=== PATIENT | female | born 1960 | race Caucasian/White ===

== ENCOUNTER 2019-12-18 08:44 | Outpatient (CLI) | payer OTHER, SELFPAY ==
--- NOTE | ~2019-12-18 | MM_ITS ---
EXAMINATION: MM screening brad BI w lopez HISTORY: Screening mammogram TECHNIQUE: Craniocaudal and mediolateral oblique 3-D tomosynthesis images were obtained and synthetic 2-D images were generated. CAD analysis was submitted and interpreted. COMPARISON: Comparison to multiple prior studies sequentially, with oldest reviewed study dated 01/14. BREAST PARENCHYMAL COMPOSITION: There are scattered areas of fibroglandular density. FINDINGS: Stable focal asymmetry outer aspect of the right breast with adjacent tissue marker from re cent benign biopsy. There is no evidence of suspicious mass, calcification, or architectural distorti on to suggest malignancy in either breast. There has been no suspicious interval change. IMPRESSION: 1. No mammographic evidence of malignancy. 2. Recommend routine screening mammography in one year. BI-RADS Category 2: Benign finding(s). Reviewed, dictated and finalized at location A.
--- NOTE | ~2019-12-18 | DEXA_ITS ---
Bone Density Report Name: Adelina Man Age: 59 Sex: Female Ethnicity: White Date of : 1960 Indication: postmenopausal; parental hip fracture; Referring Provider: DEB LACY Study: Bone densitometry was performed. Exam Date: December 18, 2019 Accession number: [id number] Bone Density: Region BMD T-score Z-score Classification AP Spine (L1, L3, L4) 0.967 -0.8 0.8 Normal Femoral Neck (Left) 0.813 -0.3 1.0 Normal Total Hip (Left) 0.918 -0.2 0.8 Normal Total Hip Bilateral Avg 0.929 -0.1 0.9 Normal Femoral Neck (Right) 0.802 -0.4 0.9 Normal Total Hip (Right) 0.938 0.0 1.0 Normal World Health Organization criteria for BMD impression classify patients as: Normal (T-score at or above -1.0), Osteopenia (T-score between -1.0 and -2.5), or Osteoporosis (T-score at or below -2.5). 10-year Fracture Risk: FRAX not reported because: All T-scores for Spine Total, Hip Total, Femoral Neck at or above -1.0 Previous Exams: Region Exam Age BMD T-score BMD Change BMD Change Date g/cm2 vs Baseline vs Previous AP Spine(L1, L3, L4) 12/18/2019 59 0.967 -0.8 -0.120(-11.0%) -0.072(-7.0%)* 01/12/2015 54 1.039 -0.1 -0.048(-4.4%)# -0.048(-4.4%)# 11/12/2010 50 1.087 0.3 Total Hip(Left) 12/18/2019 59 0.918 -0.2 -0.044(-4.6%)# -0.020(-2.2%) 01/12/2015 54 0.939 0.0 -0.024(-2.4%)# -0.024(-2.4%)# 11/12/2010 50 0.962 0.2 Total Hip(Right) 12/18/2019 59 0.938 0.0 0.003(0.3%)# -0.015(-1.6%) 01/12/2015 54 0.953 0.1 0.018(1.9%)# 0.018(1.9%)# 11/12/2010 50 0.935 -0.1 *Denotes significance at 95% confidence level, LSC for AP Spine = 0.022 g/cm2, LSC for Total Hip = 0.027 g/cm2 Clinical Information Provided by Patient: Parent has had a hip fracture Has used the following medications: Vitamin D Patient maximum height was 66 Menopause Age: 56 Drinks caffeinated beverages Onset of menses at age 11 Number of children 2 Impression: The patient has normal bone mass. The patient has risk factors, including: parental hip fracture. The BMD for the AP Spine(L1, L3, L4) decreased, changing by -7.0% since the last DXA exam. Discussion: BONE DENSITY IS ABOVE THE MINIMUM DESIRABLE LEVEL AT ALL SKELETAL SITES TESTED. This patient?s bone mineral density is above the minimum desirable level (T-score -1.0 or better) at all sites measured. The patient should follow a healthful lifestyle (good nutrition with adequate calcium and vitamin D, and
== END 2019-12-18 08:45 | disposition home or self-care (01) ==
LOC: ANHIMG 08:46
PROVIDERS: PCP Family Medicine; Visit Provider Obstetrics & Gynecology
DX: Z12.31 Encounter for screening mammogram for malignant neoplasm of breast (principal); Z78.0 Asymptomatic menopausal state
CPT/HCPCS: 77063; 77067; 77080

== ENCOUNTER 2020-06-06 07:40 | Outpatient (CLI) | payer OTHER, SELFPAY ==
--- NOTE | ~2020-06-06 | US_ITS ---
EXAMINATION: US pelvic complete w TV DATE: 06/06/2020 08:33 INDICATION: Postmenopausal bleeding Comparison:No prior studies for comparison. TECHNIQUE: Multiple transabdominal and endovaginal sonographic images of the pelvis performed. FINDINGS: The uterus measures 5.4 x 4.2 x 2.9 cm. There are nabothian cysts with cervical calcificati ons. There is a uterine fibroid posteriorly measuring 8 mm maximum dimension. The endometrial complex measures 5 mm. The ovaries are not visualized. There is no free fluid in the pelvis. There are no abnormal masses seen on either side. IMPRESSION: 1. Small 8 mm uterine fibroid posteriorly at the fundus. 2: Small developing cyst with cervical calcifications, nonspecific. Reviewed, dictated and finalized at location A. TYPE WORKER
== END 2020-06-06 07:41 | disposition home or self-care (01) ==
PROVIDERS: PCP Family Medicine; Visit Provider Nurse Practitioner
DX: N95.0 Postmenopausal bleeding (principal); D25.9 Leiomyoma of uterus, unspecified
CPT/HCPCS: 76830; 76856

== ENCOUNTER → 2020-07-28 00:14 | Outpatient (CLI) | payer OTHER, SELFPAY ==
[2020-07-28 19:08] LABS: SARS-CoV-2 RNA PCR Negative
== END ==
PROVIDERS: PCP Family Medicine; Visit Provider Obstetrics & Gynecology
DX: Z01.812 Encounter for preprocedural laboratory examination (principal); Z20.822 Contact with and (suspected) exposure to COVID-19
CPT/HCPCS: C9803; U0003; U0005

== ENCOUNTER 2020-07-31 00:12 | Day surgery (SDC) | payer OTHER, SELFPAY ==
[2020-07-27 15:12] VITALS: BMI 33.5
--- NOTE | 2020-07-30 13:49 | WPDANESEPPF ---
Anes - Initial Pre Proc Eval Procedure: Operation Date: 07/31/20 12:00 Proposed Procedures p Hysteroscopy Dilation and Curettage - Mukund Garcia MD Date/Time: 07/30/20 13:49 Surgeon: Mukund Garcia MD Pre Op Diagnosis: Post Menopausal Bleeding Patient Data Age: 60 Gender: F Height: 1.68 m Weight: 94.09 kg Allergies Allergy/AdvReac Type Severity Reaction Status Date / Time adhesive tape Allergy Intermediate Rash Verified 07/31/20 09:52 amoxicillin Allergy Intermediate Hives Verified 07/31/20 09:52 sulfanilamide Allergy Intermediate Abdominal Verified 07/31/20 09:52 Pain cephalexin Allergy Mild Itching Verified 07/31/20 09:52 erythromycin base Allergy Unknown Itching Verified 07/31/20 09:52 Home Medications Medication Instructions Recorded Confirmed Type montelukast 10 mg tablet 10 mg PO DAILY 12/27/19 07/31/20 History aspirin 81 mg PO DAILY 07/27/20 07/27/20 History biotin 10 mg PO DAILY 07/27/20 07/27/20 History cholecalciferol (vitamin D3) 1,000 mcg PO DAILY 07/27/20 07/31/20 History [Vitamin D3] fish,bora,flax oils-om3,6,9no1 1 cap PO DAILY 07/27/20 07/27/20 History [[place] 3-6-9] multivitamin [Multi-Daily] 1 tablet PO DAILY 07/27/20 07/27/20 History Patient hx anesthesia problems: none Family hx anesthesia problems: none PMFSH Past Medical History Medical History (Updated 07/31/20 @ 09:29 by Mukund Garcia MD) Abnormal uterine bleeding Chronic sinusitis Obesity Postmenopausal bleeding Surgical History Surgical History H/O foot surgery H/O tubal ligation Hx of right breast biopsy benign Family History Family History Other Diabetes mellitus Family history of cardiovascular disease Heart disease Hypertension Social History Social History Smoking status: Never smoker Alcohol intake: current Alcohol use details: socially once a month Living arrangements: with family Spiritual care concerns: No Anes - Eval Final PreProcedure Day of Procedure 07/30/20 13:49 Patient weight: obese Heart: regular rate and rhythm Lungs: clear to auscultation and normal air movement Airway: Mallampati scale class II Neurological: alert and oriented Last oral intake: >/= 8 hours ASA classification: II Emergent: no Anesthetic plan: proceed Anesthesia type and monitoring: general GIVS and LMA Informed Consent: The patient's anesthetic plan and its attendant risks and benefits were discussed with the patient/family/POA. Questions were solicited and answers provided to the satisfaction of the patient/family/POA.
--- NOTE | 2020-07-31 09:24 | P.HP_ITS ---
History of Present Illness History of Present Illness Consent: Risks, benefits, and alternatives have been discussed and questions answered. Patient agrees to proceed with procedure. Chief complaint: Post Menopausal Bleeding Narrative: Adelina Man is a 60 year old female A1 presented to the office with complaints of vaginal bleeding. patient reports red to light pink and lasted for a day . Ultrasound showed a 5 mm stripe and no hormone use. PMFSH Past Medical History Medical History Abnormal uterine bleeding Chronic sinusitis Obesity Surgical History Surgical History H/O foot surgery H/O tubal ligation Hx of right breast biopsy benign Family History Family History Other Diabetes mellitus Family history of cardiovascular disease Heart disease Hypertension Social History Social History Smoking status: Never smoker Alcohol intake: current Alcohol use details: socially once a month Living arrangements: with family Spiritual care concerns: No Meds Home Medications and Allergies Home Medications Medication Instructions Recorded Confirmed Type montelukast 10 mg tablet 10 mg PO DAILY 12/27/19 07/27/20 History aspirin 81 mg PO DAILY 07/27/20 07/27/20 History biotin 10 mg PO DAILY 07/27/20 07/27/20 History cholecalciferol (vitamin D3) 1,000 mcg PO DAILY 07/27/20 07/27/20 History [Vitamin D3] fish,bora,flax oils-om3,6,9no1 1 cap PO DAILY 07/27/20 07/27/20 History [[place] 3-6-9] multivitamin [Multi-Daily] 1 tablet PO DAILY 07/27/20 07/27/20 History Allergies Allergy/AdvReac Type Severity Reaction Status Date / Time adhesive tape Allergy Intermediate Rash Verified 07/27/20 14:43 amoxicillin Allergy Intermediate Hives Verified 07/27/20 14:43 sulfanilamide Allergy Intermediate Abdominal Verified 07/27/20 14:43 Pain cephalexin Allergy Mild Itching Verified 07/27/20 14:43 erythromycin base Allergy Unknown Itching Verified 07/27/20 14:43 Exam Resp: Effort & Inspection: normal respiratory effort Auscultation: clear to auscultation bilaterally GI: Inspection: normal to inspection GI Palp: Yes Soft to palpation : Speculum Exam - Vagina: normal appearance of the vagina and vagina atrophic Assessment and Plan Assessment and plan (1) Postmenopausal bleeding: Code(s): N95.0 - Postmenopausal bleeding Status: Acute Assessment and Plan: schedule for hysteroscopy with dilation and curettage
[2020-07-31] MEDS: ACETAMINOPHEN 500 MG TABLET 1000 MG PO (09:58)
[2020-07-31] MEDS: LACTATED RINGERS 1,000 ML 30 ML IV CONT (10:18)
[2020-07-31 10:19] VITALS: BP 116/59; PULSE 63; RESP 16; TEMP 36.6; O2SAT 98
--- NOTE | 2020-07-31 11:41 | WPDHPUPDATE1 ---
History and Physical Update Update Date/Time: 07/31/20 11:41 History and Physical has been reviewed, including an updated exam of the patient. There are NO changes in the patient's condition. Risks, benefits, and alternatives have been discussed and questions answered. Patient agrees to proceed with procedure.
--- NOTE | 2020-07-31 12:42 | PM.PROC ---
Procedure Note - Detailed Date of procedure: 07/31/20 Pre-op diagnosis: Post Menopausal Bleeding Post-op diagnosis: same Procedure performed: hysteroscopy dilation and curettage Description of procedure: Patient was taken to the operating room with IV running and prepped and draped in normal sterile fashion. She was placed in the lithotomy position bivalve speculum was placed into the vagina. Anterior lip of the cervix was grasped with a single-tooth tenaculum and the cervix was injected at the 2 and 10 o'clock position with lidocaine bilaterally. The cervix was serially dilated with Hegar dilators to 7 and the use uterus was sounded to 7cm. A hysteroscope was introduced and noted a atrophic cavity with bilateral ostia. The hysteroscope was removed and a sharp curettage was performed in all 4 quadrants. All instruments were removed from the patient's vagina hemostasis were assured and the patient was taken to the recovery room in stable condition Anesthesia: MAC and local Surgeon: Mukund Garcia MD Estimated blood loss (mL): 5 Drains: No Packing: No Pathology: yes Condition: stable Disposition: PACU Findings: atrophic uterine cavity
[2020-07-31 12:45] VITALS: BP 116/63; PULSE 55; RESP 20
[2020-07-31 13:15] VITALS: BP 122/60; PULSE 55; RESP 20
[2020-07-31 13:45] VITALS: BP 119/70; PULSE 49; RESP 20
== END 2020-07-31 14:00 | disposition home or self-care (01) ==
PROVIDERS: PCP Family Medicine; Visit Provider Obstetrics & Gynecology
PROC: 0U5B8ZZ Destruction of Endometrium, Via Natural or Artificial Opening Endoscopic (ICD-10-PCS; CPT 58563; principal; 2020-07-31 12:00)
DX: N95.0 Postmenopausal bleeding (principal); N85.8 Other specified noninflammatory disorders of uterus; E66.9 Obesity, unspecified; Z68.33 Body mass index [BMI] 33.0-33.9, adult
CPT/HCPCS: 58558; 88305; A9270; J1100; J2250; J2405; J2704; J3010; J7030; J7120

== ENCOUNTER 2020-07-31 17:28 | Outpatient (CLI) | payer OTHER, SELFPAY | END 2020-07-31 17:29 | disposition home or self-care (01) | LOC: ANHCOVIDVC 17:28 | PROVIDERS: PCP Family Medicine | DX: Z23 Encounter for immunization (principal) | CPT/HCPCS: 0001A; 91300 ==

== ENCOUNTER 2020-08-21 17:22 | Outpatient (CLI) | payer OTHER, SELFPAY | END 2020-08-21 17:23 | disposition home or self-care (01) | LOC: ANHCOVIDVC 17:22 | PROVIDERS: PCP Family Medicine | DX: Z23 Encounter for immunization (principal) | CPT/HCPCS: 0002A; 91300 ==

== ENCOUNTER 2020-09-08 17:57 | Emergency (ER) | payer OTHER, SELFPAY ==
[2020-09-08 18:06] VITALS: BP 144/62; PULSE 75; RESP 18; TEMP 36.9; O2SAT 99
--- NOTE | 2020-09-08 18:44 | ED.EAR ---
HPI - Ear Problem General Chief complaint: Ear Stated complaint: Ear Pain Source: patient and RN notes reviewed Limitations: no limitations History of Present Illness HPI Narrative: The patient, previously mostly healthy nonsmoker/ occ drinker, presents with ear discomfort. Patient states she noticed some blood-tinged discharge from the' first time' use of a Q-tip yesterday. This was preceded by left ear fullness 'fluid' sensation, despite use antihistamines, Navage. Symptoms are mild, somewhat worse positionally. She has been seen by ENT in the past for ear fluttering. Related Data Home Medications Medication Instructions Recorded Confirmed montelukast 1 mg PO DAILY 09/08/20 09/08/20 Allergies Allergy/AdvReac Type Severity Reaction Status Date / Time adhesive tape Allergy Intermediate Rash Verified 09/08/20 18:12 amoxicillin Allergy Intermediate Hives Verified 09/08/20 18:12 sulfanilamide Allergy Intermediate Abdominal Verified 09/08/20 18:12 Pain cephalexin Allergy Mild Itching Verified 09/08/20 18:12 erythromycin base Allergy Unknown Itching Verified 09/08/20 18:12 Review of Systems Review of Systems: Narrative: The patient has been informed that they may have pre-hypertension or Hypertension based on a BP reading in the department. I recommend that the patient call the primary care provider listed on their discharge instructions or a physician of their choice this week to arrange follow up for further evaluation of possible pre-hypertension or Hypertension General/Constitutional: No weight loss,fever Eyes: N0: Redness,discharge Ears/Nose/Throat: No: Epistaxis,ear discharge Respiratory: Denies: Hemoptysis Gastrointestinal: No Vomiting, Bleeding-rectal Skin: No Lumps, eruption Neurologic: No Focal Weakness,Sz Hematologic: Denies: Petechiae/Purpura Psychiatric: No: Suicida ideationl All Other Systems: Reviewed and Negative [facility] Past Medical History Medical History (Updated 09/09/20 @ 00:00 by Background Damaxineon) Abnormal uterine bleeding Chronic sinusitis Obesity Postmenopausal bleeding Surgical History Surgical History H/O foot surgery H/O tubal ligation Hx of right breast biopsy benign Family History Family History Other Diabetes mellitus Family history of cardiovascular disease Heart disease Hypertension Social History Social History Smoking status: Never smoker Alcohol intake: current Gender identity (if verbalized by the patient): Female Spiritual care concerns: No Comments At time of signature, agree with nursing past medical, surgical, social and family history. There is no relevant family history pertinent to the presenting complaint Exam Narrative: Exam Narrative: General Appearance: Well appearing, Conjunctiva clear Ears: External ear normal, TMs benign bilaterally, left EAC with small area of scab/clotted blood Nose: Normal nose Mouth/Throat: Normal appearing, Normal lips Neck: Supple Respiratory: Airway patent, No respiratory distress Musculoskeletal: Full ROM Skin: Warm, Dry Neurological: A&O x3, Normal affect Course Vital Signs Vital signs: Vital Signs Temperature 98.4 F 09/08/20 18:06 Pulse Rate 75 09/08/20 18:06 Respiratory Rate 18 09/08/20 18:06 Blood Pressure 144/62 H 09/08/20 18:06 Pulse Oximetry 99 09/08/20 18:06 Temperature 98.4 F 09/08/20 18:06 Pulse Rate 75 09/08/20 18:06 Respiratory Rate 18 09/08/20 18:06 Blood Pressure 144/62 H 09/08/20 18:06 Pulse Oximetry 99 09/08/20 18:06 Medical Decision Making Vital Signs Vital Signs: Vital Signs Temperature 98.4 F 09/08/20 18:06 Pulse Rate 75 09/08/20 18:06 Respiratory Rate 18 09/08/20 18:06 Blood Pressure 144/62 H 09/08/20 18:06 Pulse Oximetry 99 09/08/20 18:
== END 2020-09-08 18:51 | disposition home or self-care (01) ==
PROVIDERS: Emergency Provider Emergency Medicine; PCP Family Medicine
DX: S01.302A Unspecified open wound of left ear, initial encounter (principal); X58.XXXA Exposure to other specified factors, initial encounter
CPT/HCPCS: 99213; G0463

== ENCOUNTER 2020-09-26 22:25 | Emergency (ER) | payer OTHER, SELFPAY ==
[2020-09-26 22:35] VITALS: BP 149/78; PULSE 67; RESP 18; TEMP 36.2; O2SAT 95
--- NOTE | 2020-09-26 23:11 | ED.GENADULT ---
HPI - General Adult General Chief complaint: Skin/Abscess/Foreign Body Stated complaint: possible insect bite to the left arm Time Seen by Provider: 09/26/20 23:07 Source: RN notes reviewed History of Present Illness HPI narrative: Patient presents emergency department from home for insect bite. Patient states that approximately 1 hour ago she was in her bathroom when she felt a sting in her left medial upper arm she states that she swatted at that time and not definitively see an insect but began to have some erythema in that area followed by swelling down her arm she denies any swelling of the lips or tongue or shortness of breath she states she did apply some cortisone cream to the region she denies any other symptoms at this time Related Data Home Medications Medication Instructions Recorded Confirmed montelukast 1 mg PO DAILY 09/08/20 09/22/20 Allergies Allergy/AdvReac Type Severity Reaction Status Date / Time adhesive tape Allergy Intermediate Rash Verified 09/26/20 23:04 amoxicillin Allergy Intermediate Hives Verified 09/26/20 23:04 sulfanilamide Allergy Intermediate Abdominal Verified 09/26/20 23:04 Pain cephalexin Allergy Mild Itching Verified 09/26/20 23:04 erythromycin base Allergy Unknown Itching Verified 09/26/20 23:04 Review of Systems Review of Systems: Narrative: Gen.: Denies fevers or chills Eyes: Denies eye pain or visual change ENT: No swelling of lips or tongue Respiratory: Denies shortness of breath or cough CV: Denies chest pain or palpitations GI: Denies abdominal pain nausea, emesis Musculoskeletal: Denies back pain or muscle pain Neuro: Denies numbness, tingling, weakness Skin: See HPI Except as documented, all other systems reviewed and negative [facility] Past Medical History Medical History Abnormal uterine bleeding Chronic sinusitis Obesity Postmenopausal bleeding Surgical History Surgical History H/O foot surgery H/O tubal ligation Hx of right breast biopsy benign Family History Family History Other Diabetes mellitus Family history of cardiovascular disease Heart disease Hypertension Social History Social History (Reviewed 09/26/20 @ 23:12 by THOMAS Shin Smoking status: Never smoker Alcohol intake: current Gender identity (if verbalized by the patient): Female Spiritual care concerns: No Exam Narrative: Exam Narrative: APPEARANCE: No acute distress, nontoxic, resting in bed Eyes: EOMI HEENT: Normocephalic, atraumatic, RESPIRATORY: No respiratory distress MUSCULOSKELETAl: The left medial upper arm has a small area of erythema just proximal to the elbow with mild swelling down the inner left arm full range of motion of the elbow without pain radial pulse 2+ neurovascular intact NEURO: Awake and alert. Following commands, speech normal, no focal deficits SKIN:: Warm, dry. Normal Color no rash or lesions Course Course Emergency Course: Discussed with patient results of workup and diagnosis. Discussed need for follow-up with primary care, proper use of medication, and reasons to return to the emergency department. Patient understands and agrees to current treatment plan Vital Signs Vital signs: Vital Signs Temperature 97.1 F L 09/26/20 22:35 Pulse Rate 67 09/26/20 22:35 Respiratory Rate 18 09/26/20 22:35 Blood Pressure 149/78 H 09/26/20 22:35 Pulse Oximetry 95 09/26/20 22:35 Temperature 97.1 F L 09/26/20 22:35 Pulse Rate 67 09/26/20 22:35 Respiratory Rate 18 09/26/20 22:35 Blood Pressure 149/78 H 09/26/20 22:35 Pulse Oximetry 95 09/26/20 22:35 Medical Decision Making Vital Signs Vital Signs: Vital Signs Temperature 97.1 F L 09/26/20 22:35 Pulse Rate 67 09/26/20 22:35 Respiratory Rate 18 09/26/20 22:35 Blood Pressure 149/
[2020-09-26] MEDS: diphenhydrAMINE HCl CAP 25 MG CAPSULE PO (23:26)
[2020-09-26] MEDS: predniSONE 20 MG TABLET 60 MG PO (23:27)
== END 2020-09-26 23:41 | disposition home or self-care (01) ==
LOC: ANHED 23:17
PROVIDERS: Emergency Provider Emergency Medicine; PCP Family Medicine
DX: T63.481A Toxic effect of venom of other arthropod, accidental (unintentional), initial encounter (principal); E66.9 Obesity, unspecified; Z68.33 Body mass index [BMI] 33.0-33.9, adult
CPT/HCPCS: 99283; A9270; J7512

== ENCOUNTER → 2020-12-01 10:59 | Outpatient (CLI) | payer OTHER, SELFPAY ==
--- NOTE | ~2020-12-01 | XR_ITS ---
XR knee LT min 4V DATE: 12/01/2020 12:13 INDICATION: Fall, left knee injury TECHNIQUE: 4 views, including sunrise and standing AP, PA and lateral projections COMPARISON: 06/12/2018 FINDINGS: No fracture or dislocation or joint effusion, radiopaque intra-articular loose body or mary drocalcinosis. Joint spaces are well preserved. No periosteal reaction or bone destruction. IMPRESSION: Negative Reviewed, dictated and finalized at location A. IMPRESSION: Negative
--- NOTE | ~2020-12-01 | XR_ITS ---
XR foot LT min 3V DATE: 12/01/2020 12:13 INDICATION: Fall. Foot injury, pain TECHNIQUE: 4 views COMPARISON: None FINDINGS: There is diffuse osteopenia. There is osteoarthritic change at the first metatarsophalangeal joint. No fracture, dislocation, periosteal reaction or bone destruction is detected. IMPRESSION: Diffuse osteopenia Osteoarthritis at first metatarsophalangeal joint Reviewed, dictated and finalized at location A.
--- NOTE | ~2020-12-01 | XR_ITS ---
XR ankle LT min 3V DATE: 12/01/2020 12:13 INDICATION: Fall. Left ankle injury, pain TECHNIQUE: 4 views COMPARISON: None FINDINGS: No fracture or dislocation of the ankle or disruption of the ankle mortise. No periosteal r eaction or bone destruction. IMPRESSION: No significant abnormality Reviewed, dictated and finalized at location A. IMPRESSION: No significant abnormality
--- NOTE | ~2020-12-01 | XR_ITS ---
XR elbow LT min 3V DATE: 12/01/2020 12:13 INDICATION: Fall. Left elbow injury, pain TECHNIQUE: 4 views COMPARISON: None FINDINGS: No fracture, dislocation, periosteal reaction or bone destruction or joint effusion. IMPRESSION: Negative Reviewed, dictated and finalized at location A. IMPRESSION: Negative
== END ==
PROVIDERS: PCP Family Medicine; Visit Provider Physician Assistant
DX: M25.562 Pain in left knee (principal); M25.522 Pain in left elbow; W10.2XXA Fall (on)(from) incline, initial encounter
CPT/HCPCS: 73080; 73564; 73610; 73630

== ENCOUNTER 2021-01-30 09:11 | Outpatient (CLI) | payer OTHER, SELFPAY ==
--- NOTE | ~2021-01-30 | MM_ITS ---
EXAMINATION: MM screening brad BI w lopez HISTORY: Screening mammogram TECHNIQUE: Craniocaudal and mediolateral oblique 3-D tomosynthesis images were obtained and synthetic 2-D images were generated. CAD analysis was submitted and interpreted. COMPARISON: 12/18/2019 bilateral digital screening mammogram 08/10/2018 diagnostic right mammogram and limited right breast ultrasound 02/12/2018 diagnostic right mammogram and limited right breast ultrasound 02/07/2018 bilateral digital screening mammogram BREAST PARENCHYMAL COMPOSITION: There are scattered areas of fibroglandular density. FINDINGS: There is a biopsy marker in the upper outer right breast; history of prior benign right loulou ast biopsy. There is no evidence of suspicious mass, calcification, or architectural distortion to s uggest malignancy in either breast. There has been no suspicious interval change. IMPRESSION: 1. No mammographic evidence of malignancy. 2. Recommend routine screening mammography in one year. BI-RADS Category 2: Benign finding(s). Reviewed, dictated and finalized at location A.
== END 2021-01-30 09:12 | disposition home or self-care (01) ==
LOC: ANHIMG 09:13
PROVIDERS: PCP Family Medicine; Visit Provider Obstetrics & Gynecology
DX: Z12.31 Encounter for screening mammogram for malignant neoplasm of breast (principal)
CPT/HCPCS: 77063; 77067

== ENCOUNTER 2021-03-19 02:50 | Day surgery (SDC) | payer OTHER, SELFPAY ==
[2021-03-01 15:07] VITALS: BMI 34.2
[2021-03-19 09:35] VITALS: BP 138/67; PULSE 67; RESP 18; TEMP 36.4; O2SAT 100
[2021-03-19] MEDS: LACTATED RINGERS 1,000 ML 150 ML IV CONT (09:46)
--- NOTE | 2021-03-19 09:51 | WPDGICN ---
Assessment and Plan Assessment and plan (1) History of colon polyps: Code(s): Z86.010 - Personal history of colonic polyps Status: Acute Assessment and Plan: Patient has a history of colon polyps by previous colonoscopy in 2011. Plan is for surveillance colonoscopy at this time. Further recommendations will be given after endoscopy. GI Consult Note Consult date/time: 03/19/21 09:51 HPI: Adelina Man is a 61 year old female Presents for screening colonoscopy. Patient reports a prior history of colon polyps in 2011. Patient reports that her current weight appetite and bowel movements are normal. She denies abdominal pain. She has had no bleeding. Family history is noncontributory. She presents today for follow-up neoplasia screening colonoscopy. Review of Systems Review of Systems: All systems reviewed & are unremarkable except as noted in HPI and below PMFSH Past Medical History Medical History Abnormal uterine bleeding Chronic sinusitis Obesity Postmenopausal bleeding Surgical History Surgical History H/O foot surgery H/O tubal ligation Hx of right breast biopsy benign Family History Family History Other Diabetes mellitus Family history of cardiovascular disease Heart disease Hypertension Social History Social History Smoking status: Never smoker Alcohol intake: current Alcohol use details: socially once a month Substance use: never Substance use type: does not use Living arrangements: with family Additional living arrangements comments: lives with spouse Gender identity (if verbalized by the patient): Female Spiritual care concerns: No Meds Home Medications and Allergies Home Medications Medication Instructions Recorded Confirmed Type loratadine 10 mg PO DAILY #3 tablet 09/26/20 03/19/21 Rx aspirin 81 mg tablet,delayed 81 mg PO DAILY 11/04/20 03/19/21 History release cetirizine 10 mg tablet 10 mg PO DAILY PRN 11/04/20 03/19/21 History fluticasone propionate 50 2 spray INTRANASAL BID #16 ml 11/04/20 03/19/21 Rx mcg/actuation nasal spray,suspension montelukast 10 mg tablet 10 mg PO QHS #90 tablet 11/23/20 03/19/21 Rx ggavkpecvitz-pyr-qkol-FA-vit K 1 tablet PO DAILY 03/01/21 03/19/21 History [Adults Multivitamin] Allergies Allergy/AdvReac Type Severity Reaction Status Date / Time adhesive tape Allergy Intermediate Rash Verified 03/19/21 09:34 amoxicillin Allergy Intermediate Hives Verified 03/19/21 09:34 sulfanilamide Allergy Intermediate Abdominal Verified 03/19/21 09:34 Pain cephalexin Allergy Mild Itching Verified 03/19/21 09:34 erythromycin base Allergy Unknown Itching Verified 03/19/21 09:34 Vital Signs Vital Signs - 24 hr 03/19/21 09:35 Temperature 97.5 F L Pulse Rate 67 Respiratory Rate 18 Blood Pressure 138/67 Pulse Oximetry 100 Exam Narrative: Physical exam reveals patient to be alert. Vital signs stable. HEENT exam is unremarkable. Patient is anicteric. Lungs are clear to auscultation and percussion. Heart is without murmur or extra sounds. Abdominal exam bowel sounds are present soft nontender with no organomegaly. Digital external rectal exam is normal.
--- NOTE | 2021-03-19 10:06 | WPDANESEPPF ---
Anes - Initial Pre Proc Eval Procedure: Operation Date: 03/19/21 10:00 Proposed Procedures p Screening Colonoscopy - Robert Sue MD Date/Time: 03/19/21 10:06 Surgeon: Robert Sue MD Pre Op Diagnosis: hx of colon polyps, neoplasm screening Patient Data Age: 61 Gender: F Height: 1.68 m Weight: 94.7 kg Last Vital Signs Temp 97.5 F L 03/19/21 09:35 Pulse 67 03/19/21 09:35 Resp 18 03/19/21 09:35 BP 138/67 03/19/21 09:35 Pulse Ox 100 03/19/21 09:35 Allergies Allergy/AdvReac Type Severity Reaction Status Date / Time adhesive tape Allergy Intermediate Rash Verified 03/19/21 09:34 amoxicillin Allergy Intermediate Hives Verified 03/19/21 09:34 sulfanilamide Allergy Intermediate Abdominal Verified 03/19/21 09:34 Pain cephalexin Allergy Mild Itching Verified 03/19/21 09:34 erythromycin base Allergy Unknown Itching Verified 03/19/21 09:34 Home Medications Medication Instructions Recorded Confirmed Type loratadine 10 mg PO DAILY #3 tablet 09/26/20 03/19/21 Rx aspirin 81 mg tablet,delayed 81 mg PO DAILY 11/04/20 03/19/21 History release cetirizine 10 mg tablet 10 mg PO DAILY PRN 11/04/20 03/19/21 History fluticasone propionate 50 2 spray INTRANASAL BID #16 ml 11/04/20 03/19/21 Rx mcg/actuation nasal spray,suspension montelukast 10 mg tablet 10 mg PO QHS #90 tablet 11/23/20 03/19/21 Rx ippxrcpylncc-ymn-onhs-FA-vit K 1 tablet PO DAILY 03/01/21 03/19/21 History [Adults Multivitamin] Patient hx anesthesia problems: none Family hx anesthesia problems: none Results Review: All pre-operative results and documents have been reviewed as part of the pre-operative evaluation. [facility] Past Medical History Medical History Abnormal uterine bleeding Chronic sinusitis Obesity Postmenopausal bleeding Surgical History Surgical History H/O foot surgery H/O tubal ligation Hx of right breast biopsy benign Family History Family History Other Diabetes mellitus Family history of cardiovascular disease Heart disease Hypertension Social History Social History Smoking status: Never smoker Alcohol intake: current Alcohol use details: socially once a month Substance use: never Substance use type: does not use Living arrangements: with family Additional living arrangements comments: lives with spouse Gender identity (if verbalized by the patient): Female Spiritual care concerns: No Anes - Eval Final PreProcedure Day of Procedure 03/19/21 10:07 Patient weight: obese Heart: regular rate and rhythm Lungs: clear to auscultation Airway: Mallampati scale class II Neurological: alert and oriented Last oral intake: >/= 8 hours ASA classification: II Emergent: no Anesthetic plan: proceed Anesthesia type and monitoring: general GIVS and standard monitoring Results Review: All pre-operative results and documents have been reviewed as part of the pre-operative evaluation. Informed Consent: The patient's anesthetic plan and its attendant risks and benefits were discussed with the patient/family/POA. Questions were solicited and answers provided to the satisfaction of the patient/family/POA.
[2021-03-19 10:37] VITALS: BP 100/60; PULSE 65; RESP 25; O2SAT 96
[2021-03-19 10:47] VITALS: BP 119/72; PULSE 61; RESP 20; O2SAT 97
[2021-03-19 10:57] VITALS: BP 127/78; PULSE 58; RESP 20; O2SAT 97
== END 2021-03-19 11:11 | disposition home or self-care (01) ==
PROVIDERS: PCP Family Medicine; Visit Provider Internal Medicine Gastroenterology
PROC: 0DJD8ZZ Inspection of Lower Intestinal Tract, Via Natural or Artificial Opening Endoscopic (ICD-10-PCS; CPT 45378; principal; 2021-03-19 10:00)
DX: Z12.11 Encounter for screening for malignant neoplasm of colon (principal); Z86.010 Personal history of colon polyps; K64.8 Other hemorrhoids; Z79.82 Long term (current) use of aspirin; E66.9 Obesity, unspecified; Z68.33 Body mass index [BMI] 33.0-33.9, adult
CPT/HCPCS: 45378; J2704; J7120

== ENCOUNTER 2021-04-02 08:04 | Outpatient (CLI) | payer OTHER, SELFPAY ==
--- NOTE | ~2021-04-02 | CT_ITS ---
EXAMINATION: CT sinus wo con DATE: 04/02/2021 08:36 INDICATION: Facial pain and pressure TECHNIQUE: Computed tomography (CT) of the paranasal sinuses was performed without intravenous contra st. The dose-length product (DLP) was 279.81 mGy-cm. Iterative reconstruction was used. COMPARISON: 07/16/2015 FINDINGS: There is normal development and pneumatization of the paranasal sinuses. There is chronic c omplete opacification of the left maxillary sinus with sclerosis of the maxillary sinus cooley. The fr ontal, sphenoid, and right maxillary sinuses are clear. There is mild mucosal thickening of the ethmo idal air cells. There are shailesh bullosa of the middle turbinates. The right ostiomeatal complex is p atent. There is partial occlusion of the left ostiomeatal complex. Visualized soft tissues are unrema rkable. There is unchanged rightward deviation of the nasal septum. IMPRESSION: 1. Chronic left maxillary sinusitis with chronically occluded left ostiomeatal complex. Reviewed, dictated and finalized at location B.
== END 2021-04-02 08:05 | disposition home or self-care (01) ==
PROVIDERS: PCP Family Medicine; Visit Provider Otolaryngology
DX: R44.8 Other symptoms and signs involving general sensations and perceptions (principal); J34.3 Hypertrophy of nasal turbinates; Z87.898 Personal history of other specified conditions; J34.2 Deviated nasal septum; R09.82 Postnasal drip; R51.9 Headache, unspecified; J32.9 Chronic sinusitis, unspecified; J34.89 Other specified disorders of nose and nasal sinuses; R09.81 Nasal congestion
CPT/HCPCS: 70486

== ENCOUNTER 2021-05-07 03:08 | Day surgery (SDC) | payer OTHER, SELFPAY ==
[2021-04-29 11:58] VITALS: BMI 34.0
--- NOTE | 2021-04-29 12:07 | PC.NURSE ---
Report to the Outpatient Waiting Room, entrance under the green pavilion located off [facility], at time 1215 on date 05/07/21. OR Time: 1415. - You and your visitor will be asked a series of questions to screen for COVID 19 for your protection. - A mask is required within the hospital. - Only one visitor is allowed at this time. Patient visitors will be guided where to wait when not with patient. Preoperative COVID Testing Requirements: No COVID Test needed if: (proof is required; if not received patient will have Rapid Test prior to entry) - Patient has received COVID Vaccine at least 14 days prior to procedure date or - Patient has positive COVID test result within last 90 days of surgery date. COVID Test needed if above criteria is not met If not COVID vaccinated a COVID test must be conducted within 72 hours of surgery and patient is asked to isolate self from time of testing until procedure. You will go to the [facility] for your COVID testing. The [facility] is located at the corner of [address] [facility]. You will only be called if COVID results are positive and your surgeon may reschedule your elective surgery date. Patients may have clear liquids (water, carbonated beverages, clear teas, apple juice) until 3 hours prior to surgery with a maximum of 20 ounces. - No food from midnight until time of surgery - Infants may have breast milk until 4 hours before surgery, infant formula 6 hours prior to surgery. - Children will be allowed to drink immediately following surgery. If applicable, please bring a bottle or sippy cup to assist with drinking. Juice, water, soda, and popsicles are readily available. For infants on formula, please bring formula the day of surgery. Pacifiers are allowed. Take the following medications with a SIP of water the morning of surgery: NASAL SPRAY (IF NEEDED) Medications to discontinue per physician: VITAMINS/SUPPLEMENTS Date to take last dose: 05/03/[address] OSORIO Please no make-up, nail libyan, hairspray, perfume, deodorant, or body powder the day of surgery. No jewelry (including any body piercings) or valuables the day of surgery, leave them at home. Please take a shower or bath the night before, or the morning of, surgery with an antibacterial soap. Wear comfortable, loose fitting clothing. Children are encouraged to wear pajamas. - Jewelry must be removed prior to entering the operating room. Rings and piercings that are not removed may be cut off. - The hospital will not accept responsibility for valuables. - Please leave all valuables, including medications, at home the day of surgery. If you are going home after surgery, a licensed tow bar driver must drive you home. - NO public transportation without another adult. - We recommend that an adult stay with you for 24 hours following discharge. - We also recommend that you do not drive, make important decision, drink alcoholic beverages, or take any drugs that were not prescribed by your health care provider for at least 24 hours after your discharge time. For Pediatric surgeries, we recommend two adults accompany the child home (only one inside the building at this time). Follow any additional instructions given to you from your surgeon. Telephone instructions given to STEPHAN CORTÉS and asked if any additional questions and then verbalized understanding. Patient advised to call surgeon office or pre surgery nurse liaison [phone] if any additional questions.
--- NOTE | 2021-05-06 09:23 | PM.IMHP ---
H&P: HPI History of Present Illness Date/Time: 05/06/21 09:23 Chief Complaint: nasal obstruction nasal congestion septal deviation turbinate hypertrophy bilateral shailesh bullosa chronic sinusitis facial pressure facial pain left maxillary sinusitis Narrative: patient presents for planned surgical procedure no change in symptoms no change in history. Review of Systems Constitutional: Constitutional: Denies fatigue, Denies fever(s) and Denies lethargy Eyes: Eyes: Denies blurry vision and Denies change in vision ENT: Reports as per HPI Cardiovascular: Cardiovascular: Denies chest pain Respiratory: Respiratory: Denies cough Endocrine: Endocrine: Denies fatigue Hematologic/Lymphatic: Hematologic/Lymphatic: Denies easy bleeding, Denies easy bruising and Denies lymphadenopathy Allergic/Immunologic: Allergic/Immunologic: Denies seasonal rhinorrhea [facility] Past Medical History Medical History Abnormal uterine bleeding Chronic sinusitis Obesity Postmenopausal bleeding Surgical History Surgical History H/O foot surgery H/O tubal ligation Hx of right breast biopsy benign Family History Family History Other Diabetes mellitus Family history of cardiovascular disease Heart disease Hypertension Social History Social History Smoking status: Never smoker Alcohol intake: current Alcohol use details: A COUPLE A MONTH Substance use: never Substance use type: does not use Living arrangements: with family Additional living arrangements comments: lives with spouse Gender identity (if verbalized by the patient): Female Spiritual care concerns: No Meds Home Medications and Allergies Home Medications Medication Instructions Recorded Confirmed Type loratadine 10 mg PO DAILY #3 tablet 09/26/20 04/29/21 Rx aspirin 81 mg tablet,delayed 81 mg PO DAILY 11/04/20 04/29/21 History release cetirizine 10 mg tablet 10 mg PO DAILY PRN 11/04/20 04/29/21 History fluticasone propionate 50 2 spray INTRANASAL BID #16 ml 11/04/20 04/29/21 Rx mcg/actuation nasal spray,suspension montelukast 10 mg tablet 10 mg PO QHS #90 tablet 11/23/20 04/29/21 Rx pufhzyimyjsx-hip-hjyn-FA-vit K 1 tablet PO DAILY 03/01/21 04/29/21 History [Adults Multivitamin] cholecalciferol (vitamin D3) 50 mcg PO DAILY 04/29/21 04/29/21 History [Vitamin D3] omega-3 fatty acids [Fish Oil] 500 mg PO DAILY 04/29/21 04/29/21 History Allergies Allergy/AdvReac Type Severity Reaction Status Date / Time adhesive tape Allergy Intermediate Rash Verified 04/29/21 11:55 amoxicillin Allergy Intermediate Hives Verified 04/29/21 11:55 sulfanilamide Allergy Intermediate Abdominal Verified 04/29/21 11:55 Pain cephalexin Allergy Mild Itching Verified 04/29/21 11:55 erythromycin base Allergy Unknown Itching Verified 04/29/21 11:55 Exam Const: General: cooperative, healthy appearing, comfortable, well developed and alert HENMT: Head: normal to inspection, normocephalic and atraumatic Ears: hearing grossly normal bilaterally, external ears normal, TM's normal bilaterally and EAC's normal General nose exam: Normal external nose present, Normal nares present, No nasal polyps present, mucous membranes and turbinates abnormal, abnormal septum and Other nasal findings present ( Septal deviation turbinate hypertrophy) Face and sinus: normal facial exam Mouth: Yes Normal oral and palatal mucosa present, Yes lip normal, Yes tongue normal, Yes oropharynx normal and Yes moist mucous membranes Teeth and gingiva: dentition normal and gingiva normal Throat: posterior oropharynx normal, tonsils normal and uvula midline Eyes: General: appearance normal, both eyes and all related structures Periorbital: periorbital fi
[2021-05-07] VITALS (8 sets, daily range): BP systolic 126–142; BP diastolic 69–82; PULSE 63–84; RESP 13–20; TEMP 36.6–37.2; O2SAT 96–100
--- NOTE | 2021-05-07 07:04 | WPDHPUPDATE1 ---
History and Physical Update Update Date/Time: 05/07/21 07:04 History and Physical has been reviewed, including an updated exam of the patient. There are NO changes in the patient's condition. Risks, benefits, and alternatives have been discussed and questions answered. Patient agrees to proceed with procedure.
[2021-05-07] MEDS: LACTATED RINGERS 1,000 ML 30 ML IV CONT ×2 (13:00→16:55)
[2021-05-07] MEDS: ACETAMINOPHEN 500 MG TABLET 1000 MG PO (13:00)
--- NOTE | 2021-05-07 14:17 | WPDANESEPPF ---
Anes - Initial Pre Proc Eval Procedure: Operation Date: 05/07/21 14:30 Proposed Procedures p Left Maxillary Antrostomy with Tissue Removal, Bilateral Inferior Turbinectomy without Fracture, Resection of Bilateral Lachelle Bullosa - Cong Corona MD s Endoscopic Septoplasty - Cong Corona MD Date/Time: 05/07/21 14:17 Surgeon: Cong Corona MD Pre Op Diagnosis: Chronic Sinusitis Patient Data Age: 61 Gender: F Height: 1.68 m Weight: 93.7 kg Last Vital Signs Temp 37.2 C 05/07/21 12:45 Pulse 68 05/07/21 12:45 Resp 20 05/07/21 12:45 BP 142/73 H 05/07/21 12:45 Pulse Ox 100 05/07/21 12:45 Allergies Allergy/AdvReac Type Severity Reaction Status Date / Time adhesive tape Allergy Intermediate Rash Verified 05/07/21 13:07 amoxicillin Allergy Intermediate Hives Verified 05/07/21 13:07 sulfanilamide Allergy Intermediate Abdominal Verified 05/07/21 13:07 Pain cephalexin Allergy Mild Itching Verified 05/07/21 13:07 erythromycin base Allergy Unknown Itching Verified 05/07/21 13:07 Home Medications Medication Instructions Recorded Confirmed Type loratadine 10 mg PO DAILY #3 tablet 09/26/20 05/07/21 Rx aspirin 81 mg tablet,delayed 81 mg PO DAILY 11/04/20 05/07/21 History release cetirizine 10 mg tablet 10 mg PO DAILY PRN 11/04/20 05/07/21 History fluticasone propionate 50 2 spray INTRANASAL BID #16 ml 11/04/20 05/07/21 Rx mcg/actuation nasal spray,suspension montelukast 10 mg tablet 10 mg PO QHS #90 tablet 11/23/20 05/07/21 Rx biqlqswrfrwi-ccu-phyt-FA-vit K 1 tablet PO DAILY 03/01/21 05/07/21 History [Adults Multivitamin] cholecalciferol (vitamin D3) 50 mcg PO DAILY 04/29/21 05/07/21 History [Vitamin D3] omega-3 fatty acids [Fish Oil] 500 mg PO DAILY 04/29/21 05/07/21 History Patient hx anesthesia problems: none Family hx anesthesia problems: none Results Review: All pre-operative results and documents have been reviewed as part of the pre-operative evaluation. [facility] Past Medical History Medical History Abnormal uterine bleeding Chronic sinusitis Obesity Postmenopausal bleeding Surgical History Surgical History H/O foot surgery H/O tubal ligation Hx of right breast biopsy benign Family History Family History Other Diabetes mellitus Family history of cardiovascular disease Heart disease Hypertension Social History Social History Smoking status: Never smoker Alcohol intake: current Alcohol use details: A COUPLE A MONTH Substance use: never Substance use type: does not use Living arrangements: with family Additional living arrangements comments: lives with spouse Gender identity (if verbalized by the patient): Female Spiritual care concerns: No Anes - Eval Final PreProcedure Day of Procedure 05/07/21 14:17 Patient weight: obese Heart: regular rate and rhythm Lungs: clear to auscultation Airway: Mallampati scale class II Neurological: alert and oriented Last oral intake: >/= 8 hours ASA classification: II Emergent: no Anesthetic plan: proceed Anesthesia type and monitoring: general ETT and standard monitoring Results Review: All pre-operative results and documents have been reviewed as part of the pre-operative evaluation. Informed Consent: The patient's anesthetic plan and its attendant risks and benefits were discussed with the patient/family/POA. Questions were solicited and answers provided to the satisfaction of the patient/family/POA.
[2021-05-07] MEDS: CLINDAMYCIN 900 MG/D5W 50 ML 900 MG/50 ML PIGGYBACK 50 MG IVPB (15:26)
[2021-05-07] MEDS: OXYMETAZOLINE HCL 0.05% NAS 15 ML BTL (*BKC) 1 SPRAY NASAL (15:52)
[2021-05-07] MEDS: LIDO 1%/EPINEPHRINE 1:100,000 50 ML VIAL INFILTRATE (16:38)
--- NOTE | 2021-05-07 17:37 | P.OP_ITS ---
Procedure Note - Detailed Date of Procedure 05/07/21 Pre-op Diagnosis Chronic Sinusitis, septal deviation, inferior turbinate hypertrophy, bilateral shailesh bullosa, nasal obstruction, nasal congestion, allergic fungal sinusitis Post-op Diagnosis same Procedure Performed 1. Endoscopic septoplasty 2. Inferior turbinate submucosal resection with outfracture 3. Bilateral resection shailesh bullosa 4. Left maxillary antrostomy endoscopic with tissue removal Surgeon Cong Corona MD Anesthesia general Indications See above Findings The knee deviated septum straightened inferior turbinate hypertrophy well reduced bilateral shailesh resected copious amounts of fungal debris allergic in the left maxillary sinus removed in totality edematous mucosa Description of Procedure Patient correctly identified consent verified in preop. Patient brought operating room. Time-out performed. General anesthesia induced endotracheal tube secured taped the left lower lip. Preoperative imaging reviewed again. Patient prepped and draped for the aforementioned procedure. Second time-out performed. Afrin-soaked pledgets placed in bilateral nasal passages allowed to sit for 5 minutes then removed. 0 degree endoscope utilized 10 cc of 1% lidocaine with 1 100,000 parts epinephrine injected in the bilateral nasal septum head the anterior inferior turbinates bilaterally and bilateral middle turbinates shailesh bullosa. [place] incision made on the left 15 blade left- sided mucoperichondrial flap elevated with 7 Mongolian suction septum transected with caudal L with some osteotome. Left right-sided mucoperichondrial flap elev ated deviated septum removed combination of scissors Yuriy forceps Teddy Fu forceps and osteotome. No perforations noted. Bilateral shailesh cut inferiorly with a sickle blade lateral portions removed straight through cut micro debrider with tri cut blade 4 mm. This was performed bilaterally. Left maxillary sinus entered posterior to the uncinate with a double ball tip probe backbiter utilized to perform uncinectomy and widen the maxillary antrostomy straight through cut utilized to completed as well as microdebrider copious amounts of infectious debris allergic fungal debris noted. These were all suctioned out with a curved suction and irrigated multiple times to ensure all of it was removed. 70 degree scope utilized to ensure its completeness. Inferior turbinates entered anteriorly with 2 mm turbinate blade debrided submucosally outfractured with [place] elevator mulberry tips cauterized with Bovie suction electrocautery at a setting of 10. This performed bilaterally Farzad incision closed with 3 interrupted 5 0 fast gut sutures. Vicente splints placed insuring they were lateral to the middle turbinates. Vicente splints sutured anteriorly with 3-0 mattressed nylon suture. Prior to the Vicente splints being placed the bilateral nasal passages were suctioned of the choana hemostasis was excellent. While hemostasis was adequate. I performed all dictated portions the procedure total blood loss approximately 25cc. Care the patient was turned over to Anesthesiology. Implants Vicente splints Estimated Blood Loss 25 Drains No Packing No Pathology none sent Complications No immediate complications Condition stable Disposition PACU
== END 2021-05-07 18:46 | disposition home or self-care (01) ==
PROVIDERS: PCP Family Medicine; Visit Provider Otolaryngology
PROC: (CPT 31267; principal; 2021-05-07 14:30)
PROC: (CPT 30520; 2021-05-07 14:30)
DX: J32.9 Chronic sinusitis, unspecified (principal); J34.2 Deviated nasal septum; J34.3 Hypertrophy of nasal turbinates; J34.89 Other specified disorders of nose and nasal sinuses; R09.81 Nasal congestion; Z79.82 Long term (current) use of aspirin; E66.9 Obesity, unspecified; Z68.33 Body mass index [BMI] 33.0-33.9, adult
CPT/HCPCS: 31267; 31240; 30520; 30140; A9270; J1100; J2250; J2405; J2704; J3010; J7120

== ENCOUNTER → 2021-08-13 07:02 | Outpatient (CLI) | payer OTHER, SELFPAY ==
--- NOTE | ~2021-08-13 | XR_ITS ---
XR ankle LT min 3V 08/13/2021 07:20 Indication: Left ankle pain Procedure: 4 views left ankle Comparison: 12/01/2020 Findings: No fracture, subluxation or dislocation. There is an osteochondral defect along the medial aspect of the talus. Ankle mortise intact. No focal soft tissue abnormality. Impression: 1: No acute fracture. 2: Osteochondral defect medial margin of the talar dome. Reviewed, dictated and finalized at location B. Impression: 1: No acute fracture. 2: Osteochondral defect medial margin of the talar dome.
== END ==
PROVIDERS: PCP Family Medicine; Visit Provider Chiropractor
DX: M79.89 Other specified soft tissue disorders (principal)
CPT/HCPCS: 73610

== ENCOUNTER → 2021-11-25 07:03 | Outpatient (CLI) | payer OTHER, SELFPAY ==
--- NOTE | ~2021-11-25 | MR_ITS ---
EXAMINATION: MR ankle LT wo con DATE: 11/25/2021 07:43 INDICATION: Lateral sided left ankle pain and swelling. Ankle instability. TECHNIQUE: Magnetic resonance imaging (MRI) of the left ankle was performed without intravenous contr ast. Sequences included sagittal, coronal, and axial proton-density weighted fast spin echo without a nd with fat saturation. COMPARISON: None. FINDINGS: Medial ankle ligaments: Deep and superficial deltoid ligaments as well as the spring ligament are normal. Lateral ankle ligaments: The anterior and posterior inferior tibiofibular ligaments are normal. The anterior talofibular, calc aneofibular and posterior talofibular ligaments are normal. Tendons: Achilles tendon is normal. The peroneus longus and brevis tendons are normal. The tibialis anterior a nd extensor hallucis longus and extensor digitorum longus tendons are normal. The tibialis posterior, flexor digitorum longus and flexor hallucis longus tendons are normal. Plantar fascia: Plantar aponeurosis is normal. Bones/other: Bone alignment is normal. No fracture or pathologic marrow replacing process. Mild tibiotalar osteoar thritis with region of high-grade chondromalacia with fissuring and underlying subarticular cystic ch anges underlying the posterior medial aspect of the talar dome. Mild talonavicular osteoarthritis wit h additional tiny subarticular cyst at the ulnar side of the head of the talus. Additional mild osteo arthritis at a few of the tarsal metatarsal joints. Lisfranc ligament complex is normal. Sinus Tarsi and tarsal tunnel are unremarkable. Fluid: 304 mm ganglion cysts at the ulnar side of the talonavicular joint. Physiologic amount fluid in the j oint spaces. Mild subarticular edema overlying the medial and lateral malleoli. IMPRESSION: 1. 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 Reviewed, dictated and finalized at location A. IMPRESSION: 1. 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
== END ==
PROVIDERS: PCP Family Medicine; Visit Provider Orthopaedic Surgery
DX: M25.372 Other instability, left ankle (principal); M17.12 Unilateral primary osteoarthritis, left knee
CPT/HCPCS: 73721

== ENCOUNTER 2022-03-25 07:21 | Outpatient (CLI) | payer OTHER, SELFPAY ==
--- NOTE | ~2022-03-25 | MM_ITS ---
EXAMINATION: MM screening [facility] BI w lopez HISTORY: Screening mammogram TECHNIQUE: Craniocaudal and mediolateral oblique 3-D tomosynthesis images were obtained and synthetic 2-D images were generated. CAD analysis was submitted and interpreted. COMPARISON: 01/30/2021, 12/18/2019, 08/10/2018, 02/12/2018, 02/07/2018 BREAST PARENCHYMAL COMPOSITION: There are scattered areas of fibroglandular density. FINDINGS: No suspicious mass, calcification, or architectural distortion are identified in either loulou ast to suggest malignancy. There has been no suspicious interval change. IMPRESSION: 1. No mammographic evidence of malignancy. 2. Recommend routine screening mammography in one year. BI-RADS Category 1: Negative Reviewed, dictated and finalized at location A.
== END 2022-03-25 07:22 | disposition home or self-care (01) ==
PROVIDERS: PCP Family Medicine; Visit Provider Nurse Practitioner
DX: Z12.31 Encounter for screening mammogram for malignant neoplasm of breast (principal)
CPT/HCPCS: 77063; 77067

== ENCOUNTER 2023-07-17 07:15 | Outpatient (CLI) | payer OTHER, SELFPAY ==
--- NOTE | ~2023-07-17 | MM_ITS ---
EXAMINATION: MM screening [facility] BI w lopez HISTORY: Screening TECHNIQUE: Craniocaudal and mediolateral oblique 3-D tomosynthesis images were obtained and synthetic 2-D images were generated. CAD analysis was submitted and interpreted. COMPARISON: Comparison to multiple prior studies sequentially, with oldest reviewed study dated 02/07. BREAST PARENCHYMAL COMPOSITION: Not dense: There are scattered areas of fibroglandular density. FINDINGS: Stable asymmetry upper aspect of the right breast on MLO view. There is a nearby tissue bio psy marker. There is no evidence of suspicious mass, calcification, or architectural distortion to altamirano ggest malignancy in either breast. There has been no suspicious interval change. IMPRESSION: 1. No mammographic evidence of malignancy. 2. Recommend routine screening mammography in one year. BI-RADS Category 1: Negative Reviewed, dictated and finalized at location A. [employer]
== END 2023-07-17 07:16 | disposition home or self-care (01) ==
LOC: ANHIMG 07:20
PROVIDERS: PCP Family Medicine; Visit Provider Nurse Practitioner
DX: Z12.31 Encounter for screening mammogram for malignant neoplasm of breast (principal)
CPT/HCPCS: 77063; 77067

== ENCOUNTER 2023-09-23 09:48 | Emergency (ER) | payer OTHER, SELFPAY ==
--- NOTE | ~2023-09-23 | XR_ITS ---
XR chest 2V DATE: 09/23/2023 10:17 INDICATION: Cough, fever, shortness of breath TECHNIQUE: PA and lateral views COMPARISON: 06/09/2014 two-view chest FINDINGS: Normal heart size. No hilar or mediastinal enlargement. No pulmonary infiltrate or consolid ation, pleural effusion or pulmonary vascular congestion or pneumothorax is detected. There is mild dextroscoliosis as well as degenerative spurring of the thoracic spine. Osteopenia. IMPRESSION: No active cardiopulmonary disease Reviewed, dictated and finalized at location A.
[2023-09-23 09:58] VITALS: BP 117/52; PULSE 69; RESP 16; TEMP 37; O2SAT 97
--- NOTE | 2023-09-23 10:11 | ED.URI ---
HPI - URI/Sore Throat General Chief Complaint: Upper Respiratory Infection Stated Complaint: Sinus Time Seen by Provider: 09/23/23 10:05 Source: patient and RN notes reviewed History of Present Illness HPI Narrative: Patient presents today complaining of a one-week history of sore throat, congestion, sinus pressure, cough, postnasal drip, fatigue. States cough has been worsening to include shortness of breath with exertion. She started running a fever of 100.8 last night. She has tried Tylenol, Mucinex, Flonase with mild relief. No history of asthma or COPD. History of chronic sinusitis with sinus surgery last year. Related Data Home Medications Medication Instructions Recorded Confirmed aspirin 81 mg tablet,delayed 81 mg PO DAILY 11/04/20 09/23/23 release (Adult Low Dose Aspirin) cetirizine 10 mg tablet (Zyrtec) 10 mg PO DAILY PRN Sinus Symptoms 11/04/20 09/23/23 multivit with minerals-iron 18 1 tablet PO DAILY 03/01/21 09/23/23 mg-folic ac 400 mcg-vit K 25 mcg tablet (Adults Multivitamin) cholecalciferol (vitamin D3) 50 50 mcg PO DAILY 04/29/21 09/23/23 mcg (2,000 unit) tablet (Vitamin D3) omega-3 fatty acids 500 mg capsule 500 mg PO DAILY 04/29/21 09/23/23 Allergies Allergy/AdvReac Type Severity Reaction Status Date / Time adhesive tape Allergy Intermediate Rash Verified 09/23/23 09:51 amoxicillin Allergy Intermediate Hives Verified 09/23/23 09:51 sulfanilamide Allergy Intermediate Abdominal Verified 09/23/23 09:51 Pain cephalexin Allergy Mild Itching Verified 09/23/23 09:51 erythromycin base Allergy Unknown Itching Verified 09/23/23 09:51 Review of Systems Review of Systems: CONSTITUTIONAL: Denies body aches, chills, or sweats.+ fever EYES: Denies visual changes, redness, or discharge. ENT: Denies rhinorrhea, or otalgia.+ congestion, sinus pressure, postnasal drip, sore throat CARDIOVASCULAR: Denies chest pain, palpitations, or edema. RESPIRATORY: + cough, shortness of breath with exertion GASTROINTESTINAL: Denies abdominal pain, nausea, vomiting, or diarrhea. GENITOURINARY: Denies dysuria or hematuria. SKIN: Denies rash, itching, or wounds. MUSCULOSKELETAL: Denies back pain, joint pain, or myalgia. NEUROLOGIC: Denies headache, numbness, tingling, or weakness. PSYCH: Denies depression or anxiety. [facility] Past Medical History Medical History Abnormal uterine bleeding Chronic sinusitis Facial pain Facial pressure History of colon polyps History of postnasal drip Hypertrophy of both inferior nasal turbinates Nasal septal deviation Obesity Osteochondral defect of ankle Postmenopausal bleeding Right ankle pain Right ankle sprain Right foot pain Sinus tarsi syndrome of right ankle Sprain of ankle, left Traumatic arthritis of left ankle Surgical History Surgical History H/O foot surgery H/O tubal ligation Hx of right breast biopsy benign Family History Family History Sibling Scleroderma Other Diabetes mellitus Family history of cardiovascular disease Heart disease Hypertension Social History Social History Smoking status: Never smoker Second hand tobacco smoke exposure: No Alcohol intake: current Alcohol use details: A COUPLE A MONTH Substance use: never Substance use type: does not use Lack of Transportation: No Lack of Food: Never True Current Housing: I Have Housing Concerned About Future Housing: No Difficulty Paying Gas/Electric Bills: No Difficulty Paying for Meds: No Currently Unemployed: No Education: Bachelor's Degree Difficulty w/ Childcare or Family Care: No Living arrangements: with family Additional living arrangements comments: lives with spouse Gender identity (if verbalized by
== END 2023-09-23 10:35 | disposition home or self-care (01) ==
PROVIDERS: Emergency Provider Nurse Practitioner; PCP Family Medicine
DX: J01.90 Acute sinusitis, unspecified (principal); E66.9 Obesity, unspecified; Z68.31 Body mass index [BMI] 31.0-31.9, adult; M19.172 Post-traumatic osteoarthritis, left ankle and foot; Z79.82 Long term (current) use of aspirin
CPT/HCPCS: 71046; 99213; G0463

== ENCOUNTER 2023-11-28 06:59 | Outpatient (CLI) | payer OTHER, SELFPAY ==
--- NOTE | ~2023-11-28 | XR_ITS ---
XR foot RT 2V Ordering provider: Uzma Aviles PA-C History: . Pain in unspecified toe(s) . Comparison: None. FINDINGS: BONES: No acute fracture or dislocation. 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 Osteoarthritic ch anges of the proximal and distal interphalangeal joints. The possibility of naviculo- cuboid coalitio n cannot be excluded although less likely. SOFT TISSUES: Normal. IMPRESSION: No acute osseous abnormality of the right foot. Reviewed, dictated and finalized at location A.
== END 2023-11-28 07:00 ==
LOC: MICIMG 07:02
PROVIDERS: PCP Family Medicine; Visit Provider Student in an Organized Health Care Education/Training Program
DX: M79.674 Pain in right toe(s) (principal)
CPT/HCPCS: 73620

== ENCOUNTER 2024-01-03 09:23 | Outpatient (CLI) | payer OTHER, SELFPAY ==
[2024-01-23 20:55] VITALS: BMI 32.3
--- NOTE | 2024-01-23 20:55 | WPDSLEEPSTUD ---
Sleep Study Date of Study: 01/03/24 Ordering Provider: Uzma Aviles PA-C Interpreting Physician: Fransisca Camilo DO Sleep Study Type: Polysomnogram Height: 1.68 m Weight: 90.718 kg Body Mass Index: 32.3 Neck Circumference (inches): 15 [place]: 5 Reason for Sleep Study Snoring Sleep History The patient is a 63 year old female that had a sleep study ordered by her primary care for evaluation of sleep apnea. The patient denies awakening from sleep short of breath. She occasionally awakens at night with heartburn, belching or cough. She occasionally snores when she occasionally snores loudly enough others complain. She occasionally gasps for air throughout the night. She denies having breathing problems at night observed by himself or others the sweating excessively at night. She denies having heart palpitations or irregular heartbeats during the night. She rarely falls asleep during the day but never while driving. She denies sleep paralysis and cataplexy and hypnagogic / hypnopompic hallucinations. She denies having trouble at school or work due to sleepiness. She denies feeling afraid of going to sleep. She rarely nightmares per hours he rarely remembers her dreams. She occasionally has thoughts racing through her mind. She occasionally feels sad, depressed and anxious. She occasionally has muscular tension. She occasionally has notices parts her body jerk. She denies kicking during the night. She denies having crawling and aching feelings in her and denies having leg pain during the night. She occasionally grinds her teeth during sleep but never awakens with morning jaw pain. She is occasionally bothered by pain during the day not occasionally awakened by pain during the night are she occasionally wakes up feeling stiff in the morning. She occasionally with sore or achy muscles. She occasionally awakens with pain in the spine or joints. The patient goes to bed at 9:30 p.m. on weekdays and at 10:00 p.m. weekends. It takes her 30 minutes to fall asleep. She wakes up 1-2 times throughout the night to urinate and is able fall back asleep within 1 hours. She wakes up between 5-5:30 a.m. on weekdays and between 6-7 a.m. on the weekends. She typically gets 6.5-7 hours of sleep per night. She stays in bed for 30 minutes after waking up in the morning. the patient is currently lives with her spouse who is she denies consuming any caffeinated beverages within 2 hours of bedtime. She denies engaging in physical exercise before bedtime. She will read and watch television before falling asleep. She denies taking naps in the afternoon or the evening. She consumes 2 caffeinated beverages per day. She denies tobacco and recreational drug use. She does admit to consuming a few alcoholic beverages per month. [facility] Past Medical History Medical History Abnormal uterine bleeding Chronic sinusitis Facial pain Facial pressure History of colon polyps History of postnasal drip Hypertrophy of both inferior nasal turbinates Nasal septal deviation Obesity Osteochondral defect of ankle Postmenopausal bleeding Right ankle pain Right ankle sprain Right foot pain Sinus tarsi syndrome of right ankle Sprain of ankle, left Traumatic arthritis of left ankle Surgical History Surgical History H/O foot surgery H/O tubal ligation Hx of right breast biopsy benign Family History Family History Sibling Rheumatoid arthritis Other Diabetes mellitus Family history of cardiovascular disease Heart disease Hypertension Social History Social History Smoking status: Never smoker Second hand tobacco smoke exposure: No Alcohol intake: current Alcohol use details: A COUPLE A MONTH Substance use: never
== END 2024-01-04 06:50 | disposition home or self-care (01) ==
LOC: ANHCSM 09:23
PROVIDERS: PCP Family Medicine; Visit Provider Student in an Organized Health Care Education/Training Program
DX: G47.30 Sleep apnea, unspecified (principal); R06.83 Snoring
CPT/HCPCS: 95810

== ENCOUNTER 2024-03-02 11:06 | Emergency (ER) | payer OTHER, SELFPAY ==
[2024-03-02 11:23] VITALS: BP 130/62; PULSE 57; RESP 20; TEMP 36.3; O2SAT 99
--- NOTE | 2024-03-02 11:28 | ED.EAR ---
HPI - Ear Problem General Chief complaint: Ear Stated complaint: pain left ear feels wet on inside Time Seen by Provider: 03/02/24 11:29 Source: patient, RN notes reviewed and old records reviewed Mode of arrival: ambulatory Limitations: no limitations History of Present Illness HPI Narrative: Patient with history of frequent ear infections presents with complaints of feeling of fullness in the left ear. She reports that symptom has been present for about a week, but is worsening significantly. She denies any fever, chills, sweats. She does report some nasal drainage. She has not been taking anything for her symptoms. Voices no other concerns or complaints today. Related Data Home Medications Medication Instructions Recorded Confirmed aspirin 81 mg tablet,delayed 81 mg PO DAILY 11/04/20 01/16/24 release (Adult Low Dose Aspirin) cetirizine 10 mg tablet (Zyrtec) 10 mg PO DAILY PRN Sinus Symptoms 11/04/20 01/16/24 multivit with minerals-iron 18 1 tablet PO DAILY 03/01/21 01/16/24 mg-folic ac 400 mcg-vit K 25 mcg tablet (Adults Multivitamin) cholecalciferol (vitamin D3) 50 50 mcg PO DAILY 04/29/21 01/16/24 mcg (2,000 unit) tablet (Vitamin D3) omega-3 fatty acids 500 mg capsule 500 mg PO DAILY 04/29/21 01/16/24 Allergies Allergy/AdvReac Type Severity Reaction Status Date / Time adhesive tape Allergy Intermediate Rash Verified 01/16/24 15:06 amoxicillin Allergy Intermediate Hives Verified 01/16/24 15:06 sulfanilamide Allergy Intermediate Abdominal Verified 01/16/24 15:06 Pain cephalexin Allergy Mild Itching Verified 01/16/24 15:06 erythromycin base Allergy Unknown Itching Verified 01/16/24 15:06 Review of Systems Review of Systems: All systems reviewed & are unremarkable except as noted in HPI and below Constitutional: Constitutional: Reports no additional constitutional complaints ENT: Reports system reviewed and no additional complaints, except as documented, Reports otalgia, Reports nasal congestion and Reports nasal discharge Cardiovascular: Cardiovascular: Reports no additional cardiovascular complaints Respiratory: Respiratory: Reports no additional respiratory complaints Gastrointestinal: Gastrointestinal: Reports no additional gastrointestinal complaints PMFSH Past Medical History Medical History Abnormal uterine bleeding Chronic sinusitis Facial pain Facial pressure History of colon polyps History of postnasal drip Hypertrophy of both inferior nasal turbinates Nasal septal deviation Obesity Osteochondral defect of ankle Postmenopausal bleeding Right ankle pain Right ankle sprain Right foot pain Sinus tarsi syndrome of right ankle Sprain of ankle, left Traumatic arthritis of left ankle Surgical History Surgical History H/O foot surgery H/O tubal ligation Hx of right breast biopsy benign Family History Family History Sibling Rheumatoid arthritis Other Diabetes mellitus Family history of cardiovascular disease Heart disease Hypertension Social History Social History Smoking status: Never smoker Second hand tobacco smoke exposure: No Alcohol intake: current Alcohol use details: A COUPLE A MONTH Substance use: never Substance use type: does not use Lack of Transportation: No Lack of Food: Never True Current Housing: I Have Housing Concerned About Future Housing: No Difficulty Paying Gas/Electric Bills: No Difficulty Paying for Meds: No Currently Unemployed: No Education: Bachelor's Degree Difficulty w/ Childcare or Family Care: No Living arrangements: with family Additional living arrangements comments: lives with spouse Gender identity (if verbalized by the patient): Female Sexual Orientation (if Ve
== END 2024-03-02 11:55 | disposition home or self-care (01) ==
PROVIDERS: Emergency Provider Nurse Practitioner Family; PCP Family Medicine
DX: H69.92 Unspecified Eustachian tube disorder, left ear (principal); E66.9 Obesity, unspecified; Z68.36 Body mass index [BMI] 36.0-36.9, adult
CPT/HCPCS: 99213; G0463

== ENCOUNTER 2024-05-31 16:40 | Emergency (ER) | payer OTHER, SELFPAY ==
[2024-05-31 16:53] VITALS: BP 140/62; PULSE 86; RESP 16; TEMP 37.7; O2SAT 98
--- NOTE | 2024-05-31 18:27 | ED.URI ---
HPI - URI/Sore Throat General Chief Complaint: Upper Respiratory Infection Stated Complaint: Covid symptoms/fever Time Seen by Provider: 05/31/24 18:28 Source: patient, RN notes reviewed and old records reviewed Mode of arrival: ambulatory Limitations: no limitations History of Present Illness HPI Narrative: Patient presents with complaints of 2 weeks of sinus pain and congestion, purulent nasal discharge. She reports frequent sinusitis. She reports that she awakened with fever this morning, test itself for COVID and was positive. She reports that she does not know to do, as she has never had COVID before. She reports she feels as though her sinusitis has gotten worse since she developed a viral infection. She reports fever. She states the cough is not bad yet. She does report some body aches. She has been taking [id number] medications for her symptoms with minimal relief. Related Data Home Medications ?Medication ?Instructions ?Recorded ?Confirmed ?Last Taken ?Type aspirin 81 mg tablet,delayed 81 mg PO DAILY 11/04/20 01/16/24 Unknown History release (Adult Low Dose Aspirin) cetirizine 10 mg tablet (Zyrtec) 10 mg PO DAILY PRN Sinus Symptoms 11/04/20 01/16/24 Unknown History multivit with minerals-iron 18 1 tablet PO DAILY 03/01/21 01/16/24 Unknown History mg-folic ac 400 mcg-vit K 25 mcg tablet (Adults Multivitamin) cholecalciferol (vitamin D3) 50 50 mcg PO DAILY 04/29/21 01/16/24 Unknown History mcg (2,000 unit) tablet (Vitamin D3) omega-3 fatty acids 500 mg capsule 500 mg PO DAILY 04/29/21 01/16/24 Unknown History Allergies Allergy/AdvReac Type Severity Reaction Status Date / Time adhesive tape Allergy Intermediate Rash Verified 05/31/24 17:22 amoxicillin Allergy Intermediate Hives Verified 05/31/24 17:22 sulfanilamide Allergy Intermediate Abdominal Verified 05/31/24 17:22 Pain cephalexin Allergy Mild Itching Verified 05/31/24 17:22 erythromycin base Allergy Unknown Itching Verified 05/31/24 17:22 Review of Systems Review of Systems: All systems reviewed & are unremarkable except as noted in HPI and below Constitutional: Constitutional: Reports no additional constitutional complaints, Reports body ache(s), Reports chills, Reports fever(s), Reports headache(s) and Reports lethargy ENT: Reports system reviewed and no additional complaints, except as documented, Reports nasal congestion, Reports nasal discharge, Reports sinus pain and Reports sinus pressure Cardiovascular: Cardiovascular: Reports no additional cardiovascular complaints Respiratory: Respiratory: Reports no additional respiratory complaints and Reports cough Gastrointestinal: Gastrointestinal: Reports no additional gastrointestinal complaints [facility] Past Medical History Medical History Abnormal uterine bleeding Chronic sinusitis Facial pain Facial pressure History of colon polyps History of postnasal drip Hypertrophy of both inferior nasal turbinates Nasal septal deviation Obesity Osteochondral defect of ankle Postmenopausal bleeding Right ankle pain Right ankle sprain Right foot pain Sinus tarsi syndrome of right ankle Sprain of ankle, left Traumatic arthritis of left ankle Surgical History Surgical History H/O foot surgery H/O tubal ligation Hx of right breast biopsy benign Family History Family History Sibling Rheumatoid arthritis Other Diabetes mellitus Family history of cardiovascular disease Heart disease Hypertension Social History Social History Smoking status: Never smoker Second hand tobacco smoke exposure: No Alcohol intake: current Alcohol use details: A COUPLE A MONTH Substance use: never Substance use type: does not use Lack of Transportation: No Lack of Food: Never True Current Housing: I Have Housing Concerned About Future Housing: No Difficulty Paying Gas/Electric Bills: No Difficulty Paying for Meds: No Currently Unemployed: No Education: Bachelor's Degree Difficulty w/ Childcare or Family Care: No Living arrangements: with family Additional living arrangements comments: lives with spouse Gender identity (if verbalized by the patient): Female Sexual Orientation (if Verbalized by the Patient): Straight or Heterosexual Spiritual care concerns: No Agree to blood products: Yes Comments At the time of my signature, I reviewed and agree with the nursing past medical, surgical, social, and family history. There is no relevant family history pertinent to the patient complaint. Exam Const: General: cooperative, no acute distress, alert and awake Orientation/consciousness: oriented to person, oriented to place and oriented to time HENMT: Head: normal to inspection Face/Nose/Sinus: sinus tenderness Resp: Effort & Inspection: normal respiratory effort and able to speak in complete sentences Auscultation: clear to auscultation bilaterally, no crackles, no rales, no rhonchi and no wheezes Cardio: Palpation: normal PMI Rate: regular rate Rhythm: regular rhythm Heart sounds: S1 normal heart sound present and S2 normal heart sound present Neuro: General: oriented to person, oriented to place and oriented to time Cranial nerves: Yes CN's II-XII intact bilaterally Psych: Appearance: grossly normal Thought process: Normal thought process present Insight: Good insight present (Psych) Judgement: Good judgement present (Psych) Course Course Level of Care: Express Care Visit Vital Signs Vital signs: Vital Signs Temperature 99.8 F H 05/31/24 16:53 Pulse Rate 86 05/31/24 16:53 Respiratory Rate 16 05/31/24 16:53 Blood Pressure 140/62 05/31/24 16:53 Pulse Oximetry 98 05/31/24 16:53 Oxygen Delivery Room Air 05/31/24 16:53 Temperature 99.8 F H 05/31/24 16:53 Pulse Rate 86 05/31/24 16:53 Respiratory Rate 16 05/31/24 16:53 Blood Pressure 140/62 05/31/24 16:53 Pulse Oximetry 98 05/31/24 16:53 Oxygen Delivery Room Air 05/31/24 16:53 Reviewed MDM - URI/Sore Throat MDM Narrative Medical decision making narrative: Patient with positive COVID along with sinusitis. Treat sinusitis with doxycycline. Start prednisone burst. Prescribed albuterol inhaler in case cough worsens Discharge instructions reviewed with patient, as well as provided in writing per nursing staff. The instructions also include specific and strict return/GO TO THE ER as well as f/u information. All questions have been answered, and the patient deny any further questions with discharge and discharge plan. Some parts of this dictation were generated by voice recognition software and may contain typographical and/or grammatical inaccuracies. Differential Diagnosis Differential diagnosis: Likely upper respiratory infection, otitis media, sinusitis, viral infection and bronchitis Medical Records Attestation: I reviewed the patient's medical records. Discharge Plan Discharge Clinical Impression: COVID Sinusitis Qualifiers: Sinusitis location: maxillary Chronicity: acute Recurrence: not specified as recurrent Qualified Code(s): J01.00 - Acute maxillary sinusitis, unspecified Patient Disposition: Home, Self-Care Condition: Stable Instructions: Antibiotic Form, Sinusitis (ED), How to Recover from COVID-19 at Home (ED) Additional Instructions: Take medications as prescribed. Follow with primary care provider. Emergency department for new or worsening symptoms Patient Language: Faroese Prescriptions: New doxycycline hyclate 100 mg capsule 100 mg PO BID Qty: 14 0RF prednisone 50 mg tablet 50 mg PO DAILY Qty: 5 0RF albuterol sulfate [Ventolin HFA] 90 mcg/actuation HFA aerosol inhaler 2 puff inhalation QID PRN (Reason: shortness of breath or wheezing) Qty: 8.5 0RF No Action aspirin [Adult Low Dose Aspirin] 81 mg tablet,delayed release (DR/EC) 81 mg PO DAILY cetirizine [Zyrtec] 10 mg tablet 10 mg PO DAILY PRN (Reason: Sinus Symptoms) fluticasone propionate [Flonase Allergy Relief] 50 mcg/actuation spray,suspension 2 spray intranasal BID Qty: 16 3RF Rx Instructions: administer into each nostril loratadine 10 mg tablet 10 mg PO DAILY Qty: 3 0RF Adults Multivitamin 18 mg iron-400 mcg-25 mcg Tablet 1 tablet PO DAILY omega-3 fatty acids 500 mg Capsule 500 mg PO DAILY cholecalciferol (vitamin D3) [Vitamin D3] 50 mcg (2,000 unit) Tablet 50 mcg PO DAILY Follow-up/Referrals: Jennifer Escudero MD [Primary Care Provider] - 2 Weeks Time of Disposition: 18:39
== END 2024-05-31 18:45 | disposition home or self-care (01) ==
PROVIDERS: Emergency Provider Nurse Practitioner Family; PCP Family Medicine
DX: U07.1 COVID-19 (principal); Z79.82 Long term (current) use of aspirin
CPT/HCPCS: 99213; G0463

== ENCOUNTER 2024-07-24 06:41 | Outpatient (CLI) | payer OTHER, SELFPAY ==
--- NOTE | ~2024-07-24 | XR_ITS ---
Clinical Indication: Cough PA and lateral views of the chest: Comparison: 09/23/2023 Findings: The lungs are clear, without evidence of focal consolidation or pleural effusion. Cardiome diastinal silhouette is within normal limits. Bones and soft tissues are unremarkable. Impression: Normal chest. Reviewed, dictated and finalized at [facility]. ALLING AND COMMUNICATIONS ENGINEER Impression: Normal chest.
--- OUTSIDE RECORDS SUMMARY | 2024-07-24 06:43 | XMS_ITS | Clinical Summary ---
Author Organization [facility] Address [address] [place] [address] Phone Care Team Providers Care Environmental Solutions Engineer Name Role Phone Turner Sebastian MD Primary Care Provider [phone] Allergies Active Allergy Reactions Criticality Noted Date Comments Adhesive Hives,Rash High 08/27/2018 Amoxicillin Rash Low 08/27/2018 Erythromycin Nausea and Vomiting Low 08/27/2018 Sulfa (Sulfonamide Antibiotics) Rash,Itching Low Medications montelukast (SINGULAIR) 10 mg tablet TK 1 T PO QD IN THE EDITH 3 9 Active PENNSAID 20 mg/gram /actuation(2 %) solution in metered-dose pump APPLY TWO pumps (40mg) topically TO affected knee(s) TWICE DAILY 0 9 Active cetirizine HCl/pseudoephed rine (ZYRTEC-D ORAL) Take by mouth. Activ e loratadine/pseu doephedrine (CLARITIN-D 12 HOUR ORAL) Take by mouth. Acti ve omega-3s/dha/ep a/fish oil/D3 (VITAMIN-D + OMEGA-3 ORAL) Take by mouth. A ctive multivitamin (DAILY-GRACE) tablet Take 1 Tablet by mouth daily. Active calcium citrate/vitamin D3 (CALCIMATE ORAL) Take by mouth. Activ e magnesium oxide 250 mg magnesium Tablet Take by mouth. Activ e aspirin (ECOTRIN EC) 81 mg Tablet, Delayed Release (E.C.) Take 81 mg by mouth daily. Active docusate sodium (STOOL SOFTENER ORAL) Take by mouth. Activ e omega-3 fatty acids (FISH OIL ORAL) Take by mouth. Activ e BORAGE OIL ORAL Take by mouth. Active Active Problems Patient Care Coordination No te Formatting of this note migh t be different from the original. Primary Care: Turner Sebastian MD Referring Provider: Arin Potter MD [address] [place] [address] Other: Problem Noted Date Diagnosed Date Breast lump 08/17/2018 Family History Medical History Relation Name Comments Prostate Cancer Brother Lung Cancer Father Cervical Cancer Sister Fay Squamous cell carcinoma Sister Fay nose and back area Breast Cancer Neg Hx Ovarian Cancer Neg Hx Relation Name Status Comments Brother Alive Father Sister Fay Alive Social History Tobacco Use Types Packs/Day Years Used Date Smoking Tobacco: Never Smokeless Tobacco: Never Alcohol Use Standard Drinks/Week Comments Yes 0 (1 standard drink = 0.6 oz pur e alcohol) moderate Comments No Sex and Gender Information Value Date Recorded Sex Assigned at Not on file Legal Sex Female 9:09 AM CDT Gender Identity Not on file Sexual Orientation Not on file Last Filed Vital Signs Vital Sign Reading Time Taken Comments Blood Pressure 152/86 08/27/2018 11:09 AM CDT Pulse - - Temperature - - Respiratory Rate - - Oxygen Saturation - - Inhaled Oxygen Concentration - - Weight 95.2 kg (209 lb 12.8 oz) 019 11:09 AM CDT Height 167.6 cm (5' 6 ) 08/27/2018 11:0 9 AM CDT Body Mass Index 33.86 08/27/2018 11:09 AM CDT Plan of Treatment Health Maintenance Due Date Last Done Comments DTAP/TDAP/TD VACCINES (1 - Tdap) 1977 COLORECTAL SCREENING 2003 Colorectal Cancer Screening 2003 FIT-DNA Q 3 years 2003 FIT/FOBT Q 1 year 2003 Flex Sig/CT Colonography Q 5 years 2003 PNEUMOCOCCAL VACCINE 65+ YEA RS (1 of 1 - PCV) 2008 ZOSTER VACCINE (1 of 2) 2008 BREAST CANCER SCREENING 08/11/2019 08/11/19 19, 02/12/2018, 02/07/2018, Additional history exists OSTEOPOROSIS SCREENING 2023 INFLUENZA VACCINE (#1) 2023 RSV VACCINE (60+ or ) (1 - 1-dose 75+ series) 2033 Procedures Procedure Name Priority Date/Time Associated Diagnosis Comments MAMMO DIAG UNI RIGHT 3D THEODORE W OR WO CAD Routine 08/10/2018 from Last 3 Months or Most Recently Relevant to Health Maintenance Results * (ABNORMAL) MAMMO DIAG UNI RIGHT 3D THEODORE W OR WO CAD (08/10/2018) Anatomical Region Laterality Modality Breast Right Other us Mukund Garcia MD MAMMO ORDERABLES Edited Result - Final from Last 3 Months or Most Recently Relevant to Health Maintenance [facility] Care Teams Environmental Solutions Engineer Relationship Specialty Start Date End Date Turner Sebastian MD [address] [place], [place] [id number] PCP - General Family Practice 08/20/18
--- OUTSIDE RECORDS SUMMARY | 2024-07-24 06:43 | XMS_ITS | Clinical Summary ---
Author Organization [facility] Address [address] [place] [address] Care Team Providers Care Dent Remover Name Role Phone Jennifer Escudero MD Primary Care Provider [phone] Allergies No known active allergies Medications aspirin 81 mg enteric coated tablet Take 1 tablet (81 mg total) by mouth daily Active diclofenac sodium (Pennsaid) 20 mg/gram /actuation(2 %) solution in metered-dose pump APPLY TWO pumps (40mg) topically TO affected knee(s) TWICE DAILY 9 Active doxycycline hyclate 100 mg capsule TAKE 1 CAPSULE BY MOUTH TWICE A DAY FOR 5 DAYS 4 Active magnesium oxide (MAG-OX) 250 mg (150.8 mg elemental) tablet Take by mouth Active montelukast (SINGULAIR) 10 mg tablet TK 1 T PO QD IN THE EDITH 9 Active multivitamin tablet Take 1 tablet by mouth daily Active predniSONE (DELTASONE) 50 mg tablet Take 1 tablet (50 mg) by mouth daily 4 Active Active Problems No known active problems Surgical History Surgery Date Site/Laterality Comments BREAST BIOPSY 08/27/2018 Right SINUS SURGERY 04/2021 Medical History Medical History Date Comments Fracture of nasal bones 1970 Nosebleed 2018 Tinnitus 2023 Headache 2023 Sinusitis 2020 Ear problems 02/2024 Family History Medical History Relation Name Comments Asthma Brother 1 Trae Cancer Brother 2 Frank Diabetes Father Damaso Heart disease Mother Emily Allergies Sister 1 Fay Autoimmune disease Sister 1 Fay Hypertension Sister 1 Fay Snoring Sister 1 Fay Stroke Sister 2 Charlotta Relation Name Status Comments Brother 1 Trae Brother 2 Frank Father Damaso Mother Emily Sister 1 Fay Sister 2 Kary Social History Tobacco Use Types Packs/Day Years Used Date Smoking Tobacco: Never Assessed Comments Unknown Sex and Gender Information Value Date Recorded Sex Assigned at Not on file 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 Gender Identity Not on file Sexual Orientation Not on file Obstetrics History Plan of Treatment Health Maintenance Due Date Last Done Comments Colon Cancer Screening-Colonoscopy 1958 Depression Screening 1958 Fall Risk Assessment 1958 Hepatitis C Screening 1958 Osteoporosis Screening-Bone Density Scan 1958 DTaP/Tdap/Td Vaccine (1 - Tdap) 1969 Hepatitis B Screening 1976 Breast Cancer Screening-Mammogram 02/07/2019 018 Well Visit 65+ 2023 Covid-19 Vaccine (2023-2 5 season) 2024 03/17/2023, 05/07/2022, 10/04/2021, Additional history exists Influenza Vaccine (#1) 2024 03/11/2015 Pneumococcal vaccine 65+ Completed 05/18/2023 Zoster Vaccine Completed 10/13/2023, 06/24/2023 Insurance [facility] Care Teams Dent Remover Relationship Specialty Start Date End Date Jennifer Escudero MD [address] [place] [address] PCP - General Family Medicine 03/07/24
--- OUTSIDE RECORDS SUMMARY | 2024-07-24 06:43 | XMS_ITS | Clinical Summary ---
Author Organization [facility] Address [address] [place] [address] Care Team Providers Care Sfdc Consultant Name Role Phone Unavailable Primary Care Provider Unavailabl e Social History Tobacco Use Types Packs/Day Years Used Date Smoking Tobacco: Never Assessed Comments Unknown Sex and Gender Information Value Date Recorded Sex Assigned at Not on file Legal Sex Female 8:06 PM CDT Gender Identity Not on file Sexual Orientation Not on file Plan of Treatment Health Maintenance Due Date Last Done Comments Colorectal Cancer Screening Colonoscopy (10 Years) 1958 Hepatitis C 1976 DTaP, Tdap and Td Vaccines ( 1 - Tdap) 1977 Mammogram Screening 1998 Zoster Vaccines (1 of 2) 2008 Dexa Scan (General) 2023 Pneumococcal Vaccine: 65+ Ye ars (1 of 1 - PCV) 2023 COVID-19 Vaccine ( - 2023-2 5 season) 2024 Influenza Adult (#1) 2024 RSV Immunization or 60+ Years (1 - 1-dose 75+ series) 2033 Meningococcal B Vaccine Aged Out No l onger eligible based on patient's age to complete this topic Meningococcal Vaccine Aged Out No masoud amadou eligible based on patient's age to complete this topic RSV Immunizations Under 20 Months Aged Out No longer eligible based on patient's age to complete this topic
--- OUTSIDE RECORDS SUMMARY | 2024-07-24 06:43 | XMS_ITS | Referral Summary ---
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
== END 2024-07-24 06:42 | disposition home or self-care (01) ==
PROVIDERS: PCP Family Medicine; Visit Provider Family Medicine
DX: R05.9 Cough, unspecified (principal)
CPT/HCPCS: 71046

== ENCOUNTER 2024-09-12 07:30 | Outpatient (CLI) | payer OTHER, SELFPAY ==
--- NOTE | ~2024-09-12 | MM_ITS ---
EXAMINATION: MM screening [facility] BI w lopez HISTORY: Screening TECHNIQUE: Craniocaudal and mediolateral oblique 3-D tomosynthesis images were obtained and synthetic 2-D images were generated. CAD analysis was submitted and interpreted. COMPARISON: Comparison to multiple prior studies sequentially, with oldest reviewed study dated 12/17. BREAST PARENCHYMAL COMPOSITION: Not dense: There are scattered areas of fibroglandular density. FINDINGS: Stable benign nodular asymmetry upper outer quadrant of the right breast adjacent to previo us biopsy marker. There is no evidence of suspicious mass, calcification, or architectural distortion to suggest malignancy in either breast. There has been no suspicious interval change. IMPRESSION: 1. No mammographic evidence of malignancy. 2. Recommend routine screening mammography in one year. BI-RADS Category 2: Benign finding(s). Reviewed, dictated and finalized at location B.
--- OUTSIDE RECORDS SUMMARY | 2024-09-12 07:34 | XMS_ITS | Referral Summary ---
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
--- OUTSIDE RECORDS SUMMARY | 2024-09-12 07:34 | XMS_ITS | Clinical Summary ---
Author Organization [facility] Address [address] [place] [address] Care Team Providers Care Patient Care Specialist Name Role Phone Jennifer Escudero MD Primary Care Provider [phone] Allergies No known active allergies Medications aspirin [...] Active Active Problems No known active problems Encounters Date Type Department Care Team Description 08/29/2024 Telephone [facility] Otolaryngology [address] 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
--- OUTSIDE RECORDS SUMMARY | 2024-09-12 07:34 | XMS_ITS | Encounter Summary ---
Author Organization [facility] Address [address] [place] [address] Care Team Providers Care Wind Science And Planning Name Role Phone Jennifer Escudero MD Primary Care Provider [phone] Encounter Details Date Type Department Care Team (Late st Contact Info) Description 08/08/2024 Lab Requisition [facility] - DermPath Lab [address] [facility] [place] [address] Mansi Bird MD [address] [facility] [address] [place] [address] Social History Tobacco Use Types Packs/Day Years Used Date Smoking Tobacco: Never Assessed Comments Unknown Sex and Gender Information Value Date Recorded Sex Assigned at Not on file 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 Gender Identity Not on file Sexual Orientation Not on file documented as of this encounter Plan of Treatment Not on file documented as of this encounter Procedures Procedure Name Priority Date/Time Associated Diagnosis Comments DERMATOPATHOLOGY Routine 08/08/2024 8:14 AM CDT documented in this encounter Results * DERMATOPATHOLOGY (08/08/2024 8:14 AM CDT) Case Report Dermatopathology Report Case: [id number] Authorizing Provider: Mansi Bird MD Collected: 08/08/2024 08:14 AM Ordering Location: [facility] - Received: 08/09/2024 06:45 AM DermPath Lab Pathologist: Wendi Ryder MD Specimen: Skin, right thigh 2:19 PM CDT DERMATOPATHOLOGY LABORATORY Final Diagnosis Specimen A. SKIN, right thigh: DERMATOFIBROMA (D23.9) 2:19 PM CDT DERMATOPATHOLOGY LABORATORY Clinical History R/O Neoplasm of Uncertain Behavior, SCC, Dermatofibroma, Irregular Color 2:19 PM CDT DERMATOPATHOLOGY LABORATORY Gross Description Specimen A: Received is one formalin filled container labeled with the patient's name and designated right thigh. The specimen consists of a shave biopsy measuring 5x5x1 mm. Jar 0. 2:19 PM CDT DERMATOPATHOLOGY LABORATORY Microscopic Description Specimen A. SKIN, right thigh: There is epidermal hyperplasia. Within the dermis, there are fibrohistiocytic cells in haphazard array among coarse collagen bundles. 2:19 PM CDT DERMATOPATHOLOGY LABORATORY Disclaimer An external and internal positive and negative controls are appropriate for the histochemical, immunohistochemical and immunofluorescence stain(s) in this case (if any), except where stated explicitly. The performance characteristics of the stain(s) cited in this report were developed and its performance characteristic determined by the Dermatopathology Laboratory at [facility], directed by Dr. Aryan Arredondo. These tests need not be, and therefore are not, approved by the [place] Food and Drug Administration. The tests are used for clinical purposes. Billing Codes Specimen Charges Stain Charges 86362 1 2:19 PM CDT DERMATOPATHOLOGY LABORATORY Embedded Images 2:19 PM CDT DERMATOPATHOLOGY LABORATORY Pathology/Cytolo gy TISSUE SPECIMEN FROM SKIN / Unknown 08/08/2024 8:14 AM CDT 08/09/2024 6:45 AM CDT us Mansi Bird MD LAB - PATHOLOGY/CYTOLOGY ORD ERABLES Final Result DERMATOPATHOLOGY LABORATORY [facility] - Department of Dermatology [address], [address] [phone] documented in this encounter Visit Diagnoses Not on filedocumented in this encounter Care Teams Wind Science And Planning Relationship Specialty Start Date End Date Jennifer Escudero MD [address] [place] [address] PCP - General 08/12/20 documented as of this encounter
--- OUTSIDE RECORDS SUMMARY | 2024-09-12 07:34 | XMS_ITS | Clinical Summary ---
Author Organization [facility] Address [address] [place] [address] Care Team Providers Care Events Associate Name Role Phone Jennifer Escudero MD Primary Care Provider [phone] Source Comments [facility],non-owned Affiliates and Associated Physician Practices is amultiple site organization consisting of ambulatory clinics and hospital sitesin [place], [place], [place] and [place]. This disclosure is being madepursuant to the Care Everywhere program and may not contain all information available regarding this patient. 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 Gender Identity Not on file Sexual Orientation Not on file Plan of Treatment Health Maintenance Due Date Last Done Comments BONE DENSITY TESTING 1958 COLOGUARD (AGES 45-75) - COL ON CA SCREENING 1958 COLON MONITORING 1958 COLONOSCOPY - COLON CA SCREENING 1958 CT COLONOGRAPHY - COLON CA SCREENING 1958 Colorectal Cancer Screening 1958 FIT - COLON CA SCREENING 1958 FLEX SIG - COLON CA SCREENING 1958 LIPID TESTING 1958 MAMMOGRAM 1958 HEPATITIS C SCREENING 03/08/1976 DTAP/TDAP/TD VACCINES (1 - Tdap) 1977 PNEUMOCOCCAL VACCINE 50+ (1 of 1 - PCV) 2008 ZOSTER VACCINE (1 of 2) 2008 COVID-19 VACCINE (1 - 2023-2 5 season) 2024 DEPRESSION SCREENING 05/29/2024 INFLUENZA VACCINE (Season Ended) 2025 Respiratory Syncytial Virus (RSV) Vaccine Pt: or over 60 yrs (1 - 1-dose 75+ series) 2033 HEPATITIS B VACCINE Aged Out No longe r eligible based on patient's age to complete this topic HIB VACCINE Aged Out No longer eligi ble based on patient's age to complete this topic HPV VACCINE Aged Out No longer eligi ble based on patient's age to complete this topic MENINGOCOCCAL (Group B) VACC INE SHARED DECISION-MAKING Aged Out No longer eligibl e based on patient's age to complete this topic MENINGOCOCCAL GROUPS A/C/Y/W VACCINE Aged Out No longer eligible b ased on patient's age to complete this topic Procedures Procedure Name Priority Date/Time Associated Diagnosis Comments DERMATOPATHOLOGY Routine 08/08/2024 8:14 AM CDT from Last 3 Months Results * DERMATOPATHOLOGY (08/08/2024 8:14 AM CDT) Case Report Dermatopathology Report Case: [id number] Authorizing Provider: Mansi Bird MD Collected: 08/08/2024 08:14 AM Ordering Location: [facility] - Received: 08/09/2024 06:45 AM DermPath Lab Pathologist: Wendi Ryder MD Specimen: Skin, right thigh 2:19 PM CDT DERMATOPATHOLOGY LABORATORY Final Diagnosis Specimen A. SKIN, right thigh: DERMATOFIBROMA (D23.9) 5 2:19 PM CDT DERMATOPATHOLOGY LABORATORY Clinical History R/O Neoplasm of Uncertain Behavior, SCC, Dermatofibroma, Irregular Color 2:19 PM CDT DERMATOPATHOLOGY LABORATORY Gross Description Specimen A: Received is one formalin filled container labeled with the patient's name and designated right thigh. The specimen consists of a shave biopsy measuring 5x5x1 mm. Jar 0. 2:19 PM [facility] DERMATOPATHOLOGY LABORATORY Microscopic Description Specimen A. SKIN, right thigh: There is epidermal hyperplasia. Within the dermis, there are fibrohistiocytic cells in haphazard array among coarse collagen bundles. 2:19 PM [facility] DERMATOPATHOLOGY LABORATORY Disclaimer An external and internal positive and negative controls are appropriate for the histochemical, immunohistochemical and immunofluorescence stain(s) in this case (if any), except where stated explicitly. The performance characteristics of the stain(s) cited in this report were developed and its performance characteristic determined by the Dermatopathology Laboratory at [facility], directed by Dr. Aryan Arredondo. These tests need not be, and therefore are not, approved by the [place] Food and Drug Administration. The tests are used for clinical purposes. Billing Codes Specimen Charges Stain Charges 37882 1 2:19 PM CDT DERMATOPATHOLOGY LABORATORY Embedded Images 2:19 PM T DERMATOPATHOLOGY LABORATORY Pathology/Cytolo gy TISSUE SPECIMEN FROM SKIN / Unknown 08/08/2024 8:14 AM CDT 08/09/2024 6:45 AM CDT Mansi Bird MD LAB - PATHOLOGY/CYTOLOGY ORD ERABLES Final Result DERMATOPATHOLOGY LABORATORY [facility] - Department of Dermatology [facility] Medicine [address] [place] [address], [address] [phone] from Last 3 Months Insurance [employer] [facility] Address: [facility] [id number] [place] [address] Care Teams Events Associate Relationship Specialty Start Date End Date Jennifer Escudero MD [address] [place] [address] PCP - General 08/12/20
--- OUTSIDE RECORDS SUMMARY | 2024-09-12 07:34 | XMS_ITS | Clinical Summary ---
Author Organization [facility] Address [address] [place] [address] Phone Care Team Providers Care Seafood Technology Specialist Name Role Phone Turner Sebastian MD Primary Care Provider [phone] Allergies Active Allergy Reactions Criticality Noted Date [...] Arin Potter MD [address] [place] [address] Other: Problem Noted Date Diagnosed Date Breast [...] Colonography Q 5 years 2003 PNEUMOCOCCAL VACCINE 50+ YEA RS (1 of 1 - PCV) [...] (08/10/2018) Anatomical Region Laterality Modality Breast Right Mammography us Mukund Garcia MD MAMMO ORDERABLES Edited Result - Final from Last 3 Months or Most Recently Relevant to Health Maintenance Insurance [facility] PPO Care Teams Seafood Technology Specialist Relationship Specialty Start Date End Date Turner Sebastian MD [address] [place], [place] [phone] PCP - General Family Practice 08/20/18
--- OUTSIDE RECORDS SUMMARY | 2024-09-12 07:34 | XMS_ITS | Clinical Summary ---
Author Organization [facility] Address [address] [place] [address] Care Team Providers Care Residential Sales Manager Name Role Phone Unavailable Primary Care Provider [...] 2008 Dexa Scan (General) 2023 Pneumococcal Vaccine: 50+ Ye ars (1 of 1 - PCV) 2023 COVID-19 Vaccine ( - 2023-2 5 season) 2024 RSV Immunization or 60+ Years (1 [...]
== END 2024-09-12 07:31 | disposition home or self-care (01) ==
PROVIDERS: PCP Family Medicine; Visit Provider Obstetrics & Gynecology Gynecology
DX: Z12.31 Encounter for screening mammogram for malignant neoplasm of breast (principal)
CPT/HCPCS: 77063; 77067

== ENCOUNTER 2024-10-10 11:30 | Outpatient (CLI) | payer OTHER, SELFPAY ==
--- NOTE | ~2024-10-10 | XR_ITS ---
Clinical Indication: Dyspnea PA and lateral views of the chest: Comparison: 07/24/2024 Findings: The lungs are clear, without evidence of focal consolidation or pleural effusion. Cardiome diastinal silhouette is within normal limits. Bones and soft tissues are unremarkable. Impression: Normal chest. Reviewed, dictated and finalized at location . Impression: Normal chest.
== END 2024-10-10 11:31 | disposition home or self-care (01) ==
LOC: MICIMG 11:31
PROVIDERS: PCP Family Medicine; Visit Provider Student in an Organized Health Care Education/Training Program
DX: R06.00 Dyspnea, unspecified (principal); R05.9 Cough, unspecified
CPT/HCPCS: 71046

== ENCOUNTER 2025-01-23 06:53 | Outpatient (CLI) | payer OTHER, SELFPAY ==
--- NOTE | ~2025-01-23 | XR_ITS ---
XR hand RT 2V 01/23/2025 07:25 Indication: Right hand pain Procedure: 2 views right hand Comparison: 10/27/2016 Findings: Mild polyarticular osteoarthritis. No fracture, subluxation or dislocation. No significant soft tissue abnormality. No foreign bodies. Impression: 1: Mild polyarticular osteoarthritis. Reviewed, dictated and finalized at location O. Impression: 1: Mild polyarticular osteoarthritis.
== END 2025-01-23 06:54 | disposition home or self-care (01) ==
LOC: MICIMG 06:55
PROVIDERS: PCP Family Medicine; Visit Provider Student in an Organized Health Care Education/Training Program
DX: M19.041 Primary osteoarthritis, right hand (principal)
CPT/HCPCS: 73120

== ENCOUNTER 2025-02-23 12:24 | Emergency (ER) | payer OTHER, SELFPAY ==
[2025-02-23 12:30] VITALS: BP 123/65; PULSE 69; RESP 16; TEMP 36.7; O2SAT 97
--- NOTE | 2025-02-23 13:17 | ED.GENADULT ---
HPI - General Adult General Chief complaint: Wound/Laceration Stated complaint: Insect Bite Time Seen by Provider: 02/23/25 13:10 Source: patient, RN notes reviewed and old records reviewed Mode of arrival: ambulatory Limitations: no limitations History of Present Illness HPI narrative: 64 year old female who presents to [facility] care with complaints of working in her yard in her [place] and was bit by red spider about 20 minutes prior to arrival. Patient reports that area to her right wrist is itching and burning with small area of red rash noted. with minimal swelling. Patient reports that she applied edmar mask to area. Patient denies any difficulty with breathing and no difficulty swallowing. MD complaint: spider bite to her right wrist Onset (ago): minute(s) (20 minutes prior to arrival) Location: right and upper extremity (at wrist) Severity: mild Treatments prior to arrival: other (applied edmar mask to area) Related Data Home Medications ?Medication ?Instructions ?Recorded ?Confirmed ?Last Taken ?Type multivit with minerals-iron 18 1 tablet PO DAILY 03/01/21 01/20/25 Unknown History mg-folic ac 400 mcg-vit K 25 mcg tablet (Adults Multivitamin) Allergies Allergy/AdvReac Type Severity Reaction Status Date / Time adhesive tape Allergy Intermediate Rash Verified 02/23/25 12:34 amoxicillin Allergy Intermediate Hives Verified 02/23/25 12:34 sulfanilamide Allergy Intermediate Abdominal Verified 02/23/25 12:34 Pain cephalexin Allergy Mild Rash Verified 02/23/25 12:41 erythromycin base Allergy Unknown Itching Verified 02/23/25 12:34 Sulfa (Sulfonamide AdvReac Mild Abdominal Verified 02/23/25 12:34 Antibiotics) Pain Review of Systems Review of Systems: CONSTITUTIONAL: Denies fever, chills, or sweats. CARDIOVASCULAR: Denies chest pain, palpitations, or edema. RESPIRATORY: Denies cough or dyspnea. SKIN: Reports being bit by red spider at her right wrist with small area of redness minimal swelling reports that area is burning and itching MUSCULOSKELETAL: Denies joint pain or myalgia. NEUROLOGIC: Denies headache, numbness, or weakness. 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 Sprain of ankle, left Facial pain History of colon polyps Facial pressure Hypertrophy of both inferior nasal turbinates History of postnasal drip Nasal septal deviation Postmenopausal bleeding Abnormal uterine bleeding Obesity Chronic sinusitis Surgical History Surgical History H/O foot surgery Hx of right breast biopsy benign H/O tubal ligation Family History Family History Sibling Rheumatoid arthritis Other Diabetes mellitus Family history of cardiovascular disease Heart disease Hypertension Social History Social History Smoking status: Never smoker Second hand tobacco smoke exposure: No Alcohol intake: current Alcohol use details: A COUPLE A MONTH Substance use: never Substance use type: does not use Lack of Transportation: No Lack of Food: Never True Current Housing: I Have Housing Concerned About Future Housing: No Difficulty Paying Gas/Electric Bills: No Difficulty Paying for Meds: No Currently Unemployed: No Education: Bachelor's Degree Difficulty w/ Childcare or Family Care: No Living arrangements: with family Additional living arrangements comments: lives with spouse Gender identity (if verbalized by the patient): Female Sexual Orientation (if Verbalized by the Patient): Straight or Heterosexual Spiritual care concerns: No Agree to blood products: Yes Comments At time of signature, agree with nursing past medical, surgical, social and family history. There is no relevant family history pertinent to the presenting complaint Exam Narrative: GENERAL: Well-appearing, well-nourished, and in no acute distress. HEAD: Normocephalic, atraumatic. EYES: PERRLA, conjunctivae clear, and EOMI. ENT: Mucous membranes moist. Oropharynx without edema, erythema or lesions. NECK: Supple. No lymphadenopathy CHEST: Clear to auscultation. No respiratory distress.SAO2 97% on room air HEART: Regular rate and rhythm. SKIN: Warm, dry.?reports red spider bite to right wrist area with small area of redness minimal swelling with reported burning and itching. NEURO:? Alert and oriented x3. PSYCH: Normal mood and affect Course Course Emergency Course: Patient is aware of diagnosis, understands and agrees to treatment plan.? Anticipatory guidance given.? Patient agrees to follow-up as directed and is aware of reasons to seek care at the emergency department. Portions of this record may have been created with voice recognition software Level of Care: Express Care Visit Vital Signs Vital signs: Vital Signs Temperature 36.7 C 02/23/25 12:30 Pulse Rate 69 02/23/25 12:30 Respiratory Rate 16 02/23/25 12:30 Blood Pressure 123/65 02/23/25 12:30 Pulse Oximetry 97 02/23/25 12:30 Oxygen Delivery Room Air 02/23/25 12:30 Temperature 36.7 C 02/23/25 12:30 Pulse Rate 69 02/23/25 12:30 Respiratory Rate 16 02/23/25 12:30 Blood Pressure 123/65 02/23/25 12:30 Pulse Oximetry 97 02/23/25 12:30 Oxygen Delivery Room Air 02/23/25 12:30 Reviewed Medical Decision Making Differential Diagnosis Differential Diagnosis: insect bite right wrist, local reaction to insect bite, redness with burning and itching right wrist Medical Records Medical records reviewed: Yes I reviewed the external patient's medical records. Vital Signs Vital Signs: Vital Signs Temperature 36.7 C 02/23/25 12:30 Pulse Rate 69 02/23/25 12:30 Respiratory Rate 16 02/23/25 12:30 Blood Pressure 123/65 02/23/25 12:30 Pulse Oximetry 97 02/23/25 12:30 Oxygen Delivery Room Air 02/23/25 12:30 Temperature 36.7 C 02/23/25 12:30 Pulse Rate 69 02/23/25 12:30 Respiratory Rate 16 02/23/25 12:30 Blood Pressure 123/65 02/23/25 12:30 Pulse Oximetry 97 02/23/25 12:30 Oxygen Delivery Room Air 02/23/25 12:30 reviewed Critical Care Time Critical Care Time Critical Care Time: No Discharge Plan Discharge Clinical Impression: Insect bite of forearm with local reaction Qualifiers: Encounter type: initial encounter Laterality: right Qualified Code(s): S50.861A - Insect bite (nonvenomous) of right forearm, initial encounter; W57.XXXA - Bitten or stung by nonvenomous insect and other nonvenomous arthropods, initial encounter Contact dermatitis Qualifiers: Contact dermatitis type: allergic Contact dermatitis trigger: other trigger Qualified Code(s): L23.89 - Allergic contact dermatitis due to other agents Patient Disposition: Home Condition: Stable Instructions: Antibiotic Form, Contact Dermatitis (ED) Additional Instructions: Cleanse area irritation daily with liquid Dial soap pat dry and may apply triamcinolone ointment area twice daily watch for any increasing infection--redness, swelling, drainage Tylenol or ibuprofen for any fever or pain per bottle instructions follow up with PCP in 7-10 days for a wound check recheck if develop fever, chills, increasing symptom Go to the ER if your symptoms become worse of if ANY new symptoms develop Zyrtec daily for 10 days and Pepcid 20 mg daily 10 days Prednisone 20 mg twice daily for 5 days take with food If your symptoms persist, change or worsen significantly before you can contact your personal physician then please, without delay, go to the emergency department for further evaluation. Follow-up with PCP in 7-10 days or sooner if needed Patient Language: [place] Prescriptions: New triamcinolone acetonide 0.1 % ointment 1 applic topical BID Qty: 30 0RF Rx Instructions: to rash area twice daily prednisone 20 mg tablet 20 mg PO BID 5 Days Qty: 10 0RF famotidine [Pepcid] 20 mg tablet 20 mg PO DAILY Qty: 10 0RF No Action Adults Multivitamin 18 mg iron-400 mcg-25 mcg Tablet 1 tablet PO DAILY Follow-up/Referrals: Jennifer Escudero MD [Primary Care Provider, [facility]] Time of Disposition: 13:31 Quality [place] Coma Scale Eyes: Open Verbal: Oriented and Alert Motor: Follows Commands [place] Coma Total Score: 15
== END 2025-02-23 13:36 | disposition home or self-care (01) ==
PROVIDERS: Emergency Provider Registered Nurse; PCP Family Medicine
DX: S50.861A Insect bite (nonvenomous) of right forearm, initial encounter (principal); W57.XXXA Bitten or stung by nonvenomous insect and other nonvenomous arthropods, initial encounter; E66.9 Obesity, unspecified; Z68.32 Body mass index [BMI] 32.0-32.9, adult
CPT/HCPCS: 99213; G0463